=== PATIENT | female | born 1950 | race Caucasian/White ===

== ENCOUNTER 2016-12-11 09:26 | Emergency (ER) | payer OTHER ==
[2016-12-11] VITALS (10 sets, daily range): BP systolic 118–159; BP diastolic 59–90; PULSE 84–107; RESP 16–20; O2SAT 100
[~2016-12-11] VITALS: Ht 165.1 cm; Wt 67.0 kg
[~2016-12-11 09:26] MED LIST: ALPR-138 PO; ANAS1TAB PO; AZAT50 PO; CITA20 PO; DILT180C PO; FURO20 PO; KCL20 PO; MEST60TA PO; ZOLP10TA3 PO
[2016-12-11] MEDS ORDERED: ETOMIDATE 20 MG/10 ML VIAL ONE (09:39)
[2016-12-11] MEDS ORDERED: SUCCINYLCHOLINE CHLORIDE 200 MG/10 ML VIAL ONE (09:39)
[2016-12-11] MEDS ORDERED: ROCURONIUM INJ 100 MG/10 ML VIAL IV ONE (10:00)
[2016-12-11] MEDS ORDERED: SODIUM CHLORID 0.9% 500 ML INJ 500 ML IV ONE (10:00)
[2016-12-11] MEDS ORDERED: ETOMIDATE 20 MG/10 ML VIAL IV PUSH ONE (10:00)
[2016-12-11] MEDS ORDERED: PROPOFOL 1000 MG/100 ML INJ 100 ML IV SCH (10:00)
[2016-12-11] MEDS ORDERED: SODIUM CHLORIDE 0.9% FLUSH 10 ML FLUSH IVF PRN (10:00)
[2016-12-11 10:20] LABS: BLOOD GAS BASE EXCESS 1.1 mmol/L (-2-2); BLOOD GAS CARBOXYHEMOGLOBIN 2.7 % (0-4); BLOOD GAS HCO3 24 mmol/L (22-26); BLOOD GAS METHEMOGLOBIN 0.8 % (0-2); BLOOD GAS O2 HGB SATURATION 97 % (90-100); BLOOD GAS OXYGEN CONTENT 14.3 Vol % (12.0-20.0); BLOOD GAS PCO2 30 mmHg (38-42); BLOOD GAS PO2 414 mmHG (61-120); BLOOD GAS TOTAL HGB 9.7 G/DL (12.0-16.0); TEMP CORR TO 98.6
[2016-12-11 10:21] LABS: CRITICAL VALUE YES; DRAW SITE RT RADIAL; FIO2 100 %; NUMBER OF ARTERIAL PUNCTURES 1; OXYGEN DEVICE VENTILATOR; STAT YES; ULNAR PULSE PRESENT; VENT SETTINGS AC 16/550/PEEP5
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
[2016-12-11 10:59] LABS: AUTOMATED NEUTROPHIL # 7.3 TH/MM3 (1.8-7.7); BASOPHIL # 0.1 TH/MM3 (0-0.2); BASOPHIL % 0.7 % (0.0-2.0); EOSINOPHIL # 0.1 TH/MM3 (0-0.4); EOSINOPHIL % 1.2 % (0.0-4.0); HEMATOCRIT 34.7 % (35.0-46.0); HEMO FLAGS DIFF FINAL; LYMPH % 3.9 % (9.0-44.0); LYMPHOCYTE # 0.3 TH/MM3 (1.0-4.8); MEAN CELL VOLUME 85.4 FL (80.0-100.0); MEAN CORPUSCULAR HGB CONC 31.6 % (32.0-36.0); MONO % 5.4 % (0.0-8.0); NEUT % 88.8 % (16.0-70.0); PLATELET COUNT 185 TH/MM3 (150-450); RED BLOOD COUNT 4.07 MIL/MM3 (4.00-5.30); RED CELL DISTRIBUTION WIDTH 14.5 % (11.6-17.2); WHITE BLOOD COUNT 8.2 TH/MM3 (4.0-11.0)
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
[2016-12-11 11:13] LABS: ANION GAP 9 MEQ/L (5-15); BICARBONATE 28.5 MEQ/L (21.0-32.0); BLOOD UREA NITROGEN 19 MG/DL (7-18); CHLORIDE 104 MEQ/L (98-107); GLOMERULAR FILTRATION RATE 68 ML/MIN (>89); POTASSIUM 3.5 MEQ/L (3.5-5.1); SODIUM (NA) 141 MEQ/L (136-145)
[2016-12-11 11:17] LABS: BACTERIA, URINE RARE /hpf; BLOOD, URINE MOD (NEG); COMMENT (UR) CULT NOT INDICATED; CULTURE IF INDICATED CULT NOT INDICATED; GLUCOSE,URINE NEG (NEG); HYALINE CAST, URINE 5 /lpf (RARE); KETONE, URINE NEG (NEG); MUCUS URINE FEW /lpf (OCC); NITRITE,URINE NEG (NEG); URINE COLOR YELLOW (YELLW/STRAW)
[2016-12-11 11:24] LABS: PROTHROMBIN TIME - PATIENT 11.1 SEC (9.8-11.6)
[2016-12-11 11:30] LABS: AMPHETAMINE, URINE NEG (NEG); BARBITURATES, URINE NEG (NEG); COCAINE, URINE NEG (NEG)
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
[2016-12-11] MEDS: RESP: ALBUTEROL 2.5 MG/3 ML NEB (SCH) INH ×2 (13:11→13:12)
[2016-12-11] MEDS ORDERED: MIDAZOLAM HCL 5 MG/ML VIAL (1 ML) ONE ×3 (13:50→13:55)
--- NOTE | 2016-12-12 15:31 | EKG ---
Date Performed: 12/11/2016 Time Performed: 09:59:02 PTAGE: 65 years EKG: Sinus rhythm WITH FIRST DEGREE AV BLOCK LEFT ATRIAL ENLARGEMENT LOW QRS VOLTAGE IN PRECORDIAL LEADS ABNORMAL ECG Compared to prior tracing no significant change PREVIOUS TRACING : 03/12/2015 06.47 DOCTOR: Laura Garcia Interpretating Date/Time 12/12/2016 15:30:04
== END 2016-12-11 14:38 | disposition short-term general hospital (02) ==
LOC: NEPC 09:26
DX: J96.00 Acute respiratory failure, unspecified whether with hypoxia or hypercapnia (principal); J70.5 Respiratory conditions due to smoke inhalation; R41.82 Altered mental status, unspecified; R40.1 Stupor; I44.0 Atrioventricular block, first degree; I51.7 Cardiomegaly; R94.31 Abnormal electrocardiogram [ECG] [EKG]
CPT/HCPCS: 31500; 36600; 51702; 70450; 71010; 80048; 80307; 81001; 82805; 84484; 85025; 85610; 93005; 94664; 99291; J0330; J7040; J7613; J2250

== ENCOUNTER 2016-12-22 18:21 | Inpatient (IN) | payer OTHER, MEDICARE ==
[~2016-12-22] VITALS: Ht 162.6 cm; Wt 81.2 kg
[2016-12-22 23:50] VITALS: O2SAT 100
[2016-12-23] VITALS (19 sets, daily range): BP systolic 138–173; BP diastolic 58–77; PULSE 78–104; RESP 16–17; TEMP 98.4–100.3; O2SAT 96–100
[2016-12-23 00:54] LABS: BLOOD GAS BASE EXCESS 8.5 mmol/L (-2-2); BLOOD GAS CARBOXYHEMOGLOBIN 1.8 % (0-4); BLOOD GAS HCO3 32 mmol/L (22-26); BLOOD GAS METHEMOGLOBIN 0.7 % (0-2); BLOOD GAS O2 HGB SATURATION 97 % (90-100); BLOOD GAS PCO2 39 mmHg (38-42); BLOOD GAS PO2 202 mmHg (61-120); BLOOD GAS TOTAL HGB 9.9 G/DL (12.0-16.0); CRITICAL VALUE YES; TEMP CORR TO 98.6
[2016-12-23 00:55] LABS: OXYGEN DEVICE VENTILATOR; VENT SETTINGS PRVC/AC
[2016-12-23 00:56] LABS: DRAW SITE ART LINE; FIO2 50 %; STAT NO
[2016-12-23] MEDS ORDERED: ACETAMINOPHEN 325 MG TAB PO PRN (01:15)
[2016-12-23] MEDS ORDERED: SODIUM CHLORIDE 0.9% FLUSH 10 ML FLUSH PRN (01:15)
[2016-12-23] MEDS ORDERED: SENNOSIDES 8.6 MG TAB PO PRN (01:15)
[2016-12-23] MEDS ORDERED: MISCELLANEOUS NURSING INFORMATION XX SCH (01:15)
[2016-12-23] MEDS ORDERED: CHLORHEXIDINE GLUCONATE 2 % 1 PACK (2 CLOTHS) TOP PRN (01:15)
[2016-12-23] MEDS ORDERED: LACTULOSE SYRUP 20 GM/30 ML CUP PO PRN (01:15)
[2016-12-23] MEDS ORDERED: BISACODYL 10 MG SUPP RECTAL PRN (01:15)
[2016-12-23] MEDS ORDERED: RESP: ALBUTEROL 2.5 MG/IPRATROPIUM 0.5 MG NEB (PRN) INH (01:15)
[2016-12-23] MEDS ORDERED: MAGNESIUM HYDROXIDE SUSP 30 ML CUP PO PRN (01:15)
[2016-12-23] MEDS: SODIUM CHLOR 0.9% 1000 ML INJ 1,000 ML IV SCH ×2 (01:49→13:08)
[2016-12-23] MEDS: MORPHINE SULFATE 4 MG/ML INJ IV PRN ×3 (02:27→10:09)
[2016-12-23] MEDS: RESP: ALBUTEROL 2.5 MG/IPRATROPIUM 0.5 MG NEB (SCH) INH ×4 (03:10→20:34)
[2016-12-23] MEDS ORDERED: LABETALOL HCL 100 MG/20 ML VIAL IV PUSH PRN (03:30)
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
[2016-12-23 04:26] LABS: AUTOMATED NEUTROPHIL # 18.9 TH/MM3 (1.8-7.7); BASOPHIL # 0.1 TH/MM3 (0-0.2); BASOPHIL % 0.5 % (0.0-2.0); EOSINOPHIL # 0.3 TH/MM3 (0-0.4); EOSINOPHIL % 1.2 % (0.0-4.0); HEMATOCRIT 28.5 % (35.0-46.0); LYMPH % 2.1 % (9.0-44.0); LYMPHOCYTE # 0.4 TH/MM3 (1.0-4.8); MEAN CELL VOLUME 83.3 FL (80.0-100.0); MEAN CORPUSCULAR HEMOGLOBIN 26.7 PG (27.0-34.0); MONO % 9.3 % (0.0-8.0); NEUT % 86.9 % (16.0-70.0); PLATELET COUNT 248 TH/MM3 (150-450); RED BLOOD COUNT 3.42 MIL/MM3 (4.00-5.30); RED CELL DISTRIBUTION WIDTH 15.4 % (11.6-17.2); WHITE BLOOD COUNT 21.7 TH/MM3 (4.0-11.0)
[2016-12-23 04:27] LABS: ALT (GPT) 18 U/L (10-53); ANION GAP 6 MEQ/L (5-15); AST (GOT) 29 U/L (15-37); BICARBONATE 32.6 MEQ/L (21.0-32.0); BLOOD UREA NITROGEN 26 MG/DL (7-18); CHLORIDE 114 MEQ/L (98-107); GLOMERULAR FILTRATION RATE 124 ML/MIN (>89); MAGNESIUM 2.8 MG/DL (1.5-2.5); POTASSIUM 3.8 MEQ/L (3.5-5.1); SODIUM (NA) 153 MEQ/L (136-145)
[2016-12-23 04:29] LABS: ALKALINE PHOSPHATASE 97 U/L (45-117); HEMO FLAGS AUTO DIFF; TOTAL BILIRUBIN ADULT 0.5 MG/DL (0.2-1.0)
[2016-12-23] MEDS: CHLORHEXIDINE GLUCONATE 2 % 1 PACK (2 CLOTHS) TOP SCH (04:58)
[2016-12-23 05:36] LABS: BANDS 9 % (0-6); CORRECTED NUCLEATED RBC 1 /100 WBC (0-0); EOSINOPHILS 1 % (0-4); MYELOCYTES 3 % (0-0); NEUTROPHIL # MANUAL DIFF 20.6 TH/MM3 (1.8-7.7); POLYS (SEG NEUTROPHILS) 83 % (16-70); WBC DIFF SAMPLE 100
[2016-12-23 05:37] LABS: PLATELET ESTIMATE SMEAR NORMAL (NORMAL); PLATELET MORPHOLOGY NORMAL (NORMAL); SCAN/DIFF FINAL DIFF MANUAL
[2016-12-23] MEDS: HEPARIN SODIUM - SQ 10,000 UNITS/ML VIAL SQ SCH ×3 (05:52→21:14)
--- NOTE | 2016-12-23 06:05 | RADRPT ---
EXAM DATE/TIME: 12/23/2016 05:21 [facility] COMPARISON: CHEST SINGLE AP, December 11, 2016, 10:06. INDICATIONS : Evaluate after respiratory distress. MEDICAL HISTORY : Cardiovascular disease. SURGICAL HISTORY : CABG. ENCOUNTER: Subsequent ACUITY: 1 week PAIN SCORE: Non-responsive. LOCATION: Bilateral chest FINDINGS: Tracheostomy tube is present in satisfactory position. Left subclavian pacer wires are present with t ips in the right atrium and right ventricle. There is evidence for prior median sternotomy. Mild left lung base atelectasis and/or infiltrate is seen. There is also mild diffuse interstitial process in the left lung. No definite pneumothorax is seen for technique. Heart and mediastinum are unremarkable for technique. CONCLUSION: Mild left lung base atelectasis and/or infiltrate is seen and left lung interstitial process. Augustine Espinoza MD on December 23, 2016 at 6:02 Board Certified Radiologist. This report was verified electronically.
[2016-12-23] MEDS ORDERED: ANASTROZOLE 1 MG TAB PO SCH (09:00)
[2016-12-23] MEDS ORDERED: DILTIAZEM-CD 180 MG CAP ER PO SCH (09:00)
[2016-12-23] MEDS: SODIUM CHLORIDE 0.9% FLUSH 10 ML FLUSH SCH ×2 (09:59→21:14)
[2016-12-23] MEDS: ALPRAZolam 0.25 MG TAB PO SCH ×2 (10:00→21:13)
[2016-12-23] MEDS: PANTOPRAZOLE SODIUM 40 MG VIAL IV SCH (10:00)
[2016-12-23] MEDS: CITALOPRAM HYDROBROMIDE 20 MG TAB PO SCH (10:01)
[2016-12-23] MEDS: PYRIDOSTIGMINE BROMIDE 60 MG TAB PO SCH ×2 (10:01→21:11)
[2016-12-23] MEDS: DOCUSATE SODIUM 50 MG/SENNA 8.6 MG TAB PO SCH ×2 (10:01→21:00)
[2016-12-23] MEDS: DILTIAZEM HCL 60 MG TAB PO SCH ×2 (11:30→18:22)
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
[2016-12-23] MEDS: ZOLPIDEM TARTRATE 10 MG TAB PO SCH (21:11)
[2016-12-24] VITALS (19 sets, daily range): BP systolic 112–186; BP diastolic 49–81; PULSE 79–90; RESP 16–26; TEMP 98.7–100.5; O2SAT 95–100
[2016-12-24] MEDS: DILTIAZEM HCL 60 MG TAB PO SCH ×4 (02:56→18:41)
[2016-12-24] MEDS: SODIUM CHLOR 0.9% 1000 ML INJ 1,000 ML IV SCH ×2 (02:56→12:58)
[2016-12-24 04:07] LABS: POTASSIUM 3.3 MEQ/L (3.5-5.1)
[2016-12-24] MEDS: RESP: ALBUTEROL 2.5 MG/IPRATROPIUM 0.5 MG NEB (SCH) INH ×4 (04:29→20:53)
[2016-12-24] MEDS: CHLORHEXIDINE GLUCONATE 2 % 1 PACK (2 CLOTHS) TOP SCH (04:53)
[2016-12-24] MEDS: HEPARIN SODIUM - SQ 10,000 UNITS/ML VIAL SQ SCH ×3 (06:28→21:27)
[2016-12-24] MEDS ORDERED: POTASSIUM PHOSPHATE MONOBASIC 500 MG TAB PO PRN (06:45)
[2016-12-24] MEDS ORDERED: POTASSIUM CHLOR 40 MEQ PREMIX 100 ML IV PRN ×2 (06:45)
[2016-12-24] MEDS ORDERED: SODIUM PHOSPHATE INJ 30 MMOL in SODIUM CHLOR 0.9% 250 ML INJ 240 ML IV PRN (06:45)
[2016-12-24] MEDS ORDERED: MAGNESIUM SULFATE INJ 2 GM in SODIUM CHLORIDE 0.9% INJ 96 ML IV PRN (06:45)
[2016-12-24] MEDS ORDERED: MAGNESIUM OXIDE 400 MG TAB PO PRN (06:45)
[2016-12-24] MEDS ORDERED: POTASSIUM CHLOR 20 MEQ PREMIX 100 ML IV PRN (06:45)
[2016-12-24] MEDS ORDERED: POTASSIUM PHOSPHATE MONOBASIC 500 MG TAB PO/TUBE PRN (06:45)
[2016-12-24] MEDS ORDERED: POTASSIUM PHOSPHATE INJ 30 MMOL in SODIUM CHLOR 0.9% 250 ML INJ 250 ML IV PRN (06:45)
[2016-12-24] MEDS ORDERED: MAGNESIUM SULFATE INJ 4 GM in SODIUM CHLORIDE 0.9% INJ 92 ML IV PRN (06:45)
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
[2016-12-24] MEDS: DOCUSATE SODIUM 50 MG/SENNA 8.6 MG TAB PO SCH ×2 (09:00→21:00)
[2016-12-24] MEDS: POTASSIUM CHLOR 20 MEQ PREMIX 100 ML IV PRN ×2 (09:08→11:17)
[2016-12-24] MEDS: PYRIDOSTIGMINE BROMIDE 60 MG TAB PO SCH ×2 (09:09→21:27)
[2016-12-24] MEDS: ALPRAZolam 0.25 MG TAB PO SCH ×2 (09:09→21:27)
[2016-12-24] MEDS: PANTOPRAZOLE SODIUM 40 MG VIAL IV SCH (09:09)
[2016-12-24] MEDS: SODIUM CHLORIDE 0.9% FLUSH 10 ML FLUSH SCH ×2 (09:10→21:28)
[2016-12-24] MEDS: CITALOPRAM HYDROBROMIDE 20 MG TAB PO SCH (09:15)
--- NOTE | 2016-12-24 14:40 | EKG ---
Date Performed: 12/23/2016 Time Performed: 11:27:46 PTAGE: 65 years EKG: Atrial fibrillation with rapid ventricular response with demand pacer Nonspecific T-wave ch anges Since PREVIOUS TRACING 12/11/2016, there is rhythm change from Sinus rhythm with first degree AV block to atrial fibrillation. One pacer spike was seen in the previous tracing. The patient's atrial lead may not be sensing properly as there are some very short OK intervals and somewhat longer OK intervals seen in this tracing. Clinical correlation is recommended. PREVIOUS TRAC IN12/11/2016 09.59 DOCTOR: Donny Arteaga Interpretating Date/Time 12/24/2016 14:40:28
--- NOTE | 2016-12-24 14:43 | EKG ---
Date Performed: 12/23/2016 Time Performed: 11:29:06 PTAGE: 65 years EKG: Atrial fibrillation with rapid ventricular response and demand pacing The atrial lead may n ot be sensing properly. The ventricular lead does appear to be pacing intermittently. Nonspecific T-w ave change Since PREVIOUS TRACING 12/23/2016, there appears to be ventricular pacing intermittently. Unde rlying rhythm of atrial fibrillation remains. Clinical correlation is recommended. PREVIOUS TRACIN12/23/2016 11.27 DOCTOR: Donny Arteaga Interpretating Date/Time 12/24/2016 14:42:24
[2016-12-24] MEDS: ZOLPIDEM TARTRATE 10 MG TAB PO SCH (21:27)
[2016-12-25] VITALS (19 sets, daily range): BP systolic 126–179; BP diastolic 54–80; PULSE 82–99; RESP 18–23; TEMP 98.4–99.6; O2SAT 37–100
[2016-12-25] MEDS: DILTIAZEM HCL 60 MG TAB PO SCH ×5 (00:31→23:08)
[2016-12-25] MEDS: SODIUM CHLOR 0.9% 1000 ML INJ 1,000 ML IV SCH ×3 (00:31→23:08)
[2016-12-25] MEDS: RESP: ALBUTEROL 2.5 MG/IPRATROPIUM 0.5 MG NEB (SCH) INH ×4 (04:53→20:27)
[2016-12-25] MEDS: CHLORHEXIDINE GLUCONATE 2 % 1 PACK (2 CLOTHS) TOP SCH (05:53)
[2016-12-25] MEDS: HEPARIN SODIUM - SQ 10,000 UNITS/ML VIAL SQ SCH ×3 (06:22→20:45)
[2016-12-25] MEDS: DOCUSATE SODIUM 50 MG/SENNA 8.6 MG TAB PO SCH ×2 (09:00→20:45)
[2016-12-25] MEDS: SODIUM CHLORIDE 0.9% FLUSH 10 ML FLUSH SCH ×2 (09:00→20:45)
[2016-12-25] MEDS ORDERED: MISCELLANEOUS NURSING INFORMATION ONE (10:00)
[2016-12-25] MEDS: PYRIDOSTIGMINE BROMIDE 60 MG TAB PO SCH ×2 (10:04→20:44)
[2016-12-25] MEDS: ALPRAZolam 0.25 MG TAB PO SCH ×2 (10:04→20:44)
[2016-12-25] MEDS: PANTOPRAZOLE SODIUM 40 MG VIAL IV SCH (10:04)
[2016-12-25] MEDS: CITALOPRAM HYDROBROMIDE 20 MG TAB PO SCH (10:04)
[2016-12-25] MEDS: MORPHINE SULFATE 4 MG/ML INJ IV PRN ×2 (11:00→15:48)
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
--- NOTE | 2016-12-25 12:27 | RADRPT ---
EXAM DATE/TIME: 12/25/2016 11:11 [place] COMPARISON: CHEST SINGLE AP, December 23, 2016, 5:21. INDICATIONS : Follow up right pneumothorax/chest tube MEDICAL HISTORY : Cardiovascular disease. Hypertension Carcinoma, breast. thymus cancer SURGICAL HISTORY : Pacemaker. CABG. ENCOUNTER: Initial ACUITY: 2 days PAIN SCORE: Non-responsive. LOCATION: Bilateral chest FINDINGS: The tracheostomy appears in satisfactory position. There is a oral gastric tube present. There is a t ransvenous pacer in good position. The patient is post median sternotomy and valvular replacement. Th ere is a chest tube in place at the right lung base. No pneumothorax is identified. The osseous structures are grossly intact. CONCLUSION: 1. Support equipment in satisfactory position. 2. Chest tube at the right lung base. 3. No pneumothorax. Nigel Aldana MD on December 25, 2016 at 12:24 Board Certified Radiologist. This report was verified electronically.
[2016-12-25 12:34] LABS: AUTOMATED NEUTROPHIL # 15.3 TH/MM3 (1.8-7.7); BASOPHIL # 0.1 TH/MM3 (0-0.2); BASOPHIL % 0.5 % (0.0-2.0); EOSINOPHIL # 0.2 TH/MM3 (0-0.4); HEMATOCRIT 26.2 % (35.0-46.0); LYMPH % 1.4 % (9.0-44.0); LYMPHOCYTE # 0.3 TH/MM3 (1.0-4.8); MEAN CELL VOLUME 83.8 FL (80.0-100.0); MEAN CORPUSCULAR HEMOGLOBIN 26.8 PG (27.0-34.0); MONO % 8.9 % (0.0-8.0); NEUT % 88.2 % (16.0-70.0); PLATELET COUNT 250 TH/MM3 (150-450); RED BLOOD COUNT 3.13 MIL/MM3 (4.00-5.30); RED CELL DISTRIBUTION WIDTH 15.5 % (11.6-17.2); WHITE BLOOD COUNT 17.4 TH/MM3 (4.0-11.0)
[2016-12-25 12:36] LABS: HEMO FLAGS AUTO DIFF
[2016-12-25 12:39] LABS: APTT (PATIENT) 25.7 SEC (24.3-30.1)
[2016-12-25 13:00] LABS: ALKALINE PHOSPHATASE 106 U/L (45-117); ALT (GPT) 55 U/L (10-53); ANION GAP 8 MEQ/L (5-15); AST (GOT) 65 U/L (15-37); BICARBONATE 21.5 MEQ/L (21.0-32.0); BLOOD UREA NITROGEN 22 MG/DL (7-18); CHLORIDE 117 MEQ/L (98-107); CREATINE KINASE 527 U/L (26-192); GLOMERULAR FILTRATION RATE 175 ML/MIN (>89); MAGNESIUM 2.4 MG/DL (1.5-2.5); POTASSIUM 3.7 MEQ/L (3.5-5.1); SODIUM (NA) 146 MEQ/L (136-145); TOTAL BILIRUBIN ADULT 0.3 MG/DL (0.2-1.0)
[2016-12-25 13:20] LABS: BANDS 10 % (0-6); METAMYELOCYTES 1 % (0-1); NEUTROPHIL # MANUAL DIFF 15.5 TH/MM3 (1.8-7.7); PLATELET ESTIMATE SMEAR NORMAL (NORMAL); PLATELET MORPHOLOGY NORMAL (NORMAL); POLYS (SEG NEUTROPHILS) 78 % (16-70); SCAN/DIFF FINAL DIFF MANUAL; WBC DIFF SAMPLE 100
[2016-12-25] MEDS ORDERED: POTASSIUM PHOSPHATE/SODIUM PHOSPHATE 250 MG TAB OG-TUBE ONE (14:00)
[2016-12-25 14:08] LABS: CKMB 7.9 NG/ML (0.5-3.6)
[2016-12-25] MEDS: ZOLPIDEM TARTRATE 10 MG TAB PO SCH (20:43)
[2016-12-26] VITALS (16 sets, daily range): BP systolic 122–144; BP diastolic 53–83; PULSE 85–102; RESP 17–33; TEMP 98.4–99.7; O2SAT 97–100
[2016-12-26] MEDS: RESP: ALBUTEROL 2.5 MG/IPRATROPIUM 0.5 MG NEB (SCH) INH ×4 (03:15→19:52)
[2016-12-26] MEDS: CHLORHEXIDINE GLUCONATE 2 % 1 PACK (2 CLOTHS) TOP SCH (04:00)
[2016-12-26] MEDS: DILTIAZEM HCL 60 MG TAB PO SCH ×4 (04:26→23:54)
[2016-12-26] MEDS: MORPHINE SULFATE 4 MG/ML INJ IV PRN ×2 (04:26→17:58)
[2016-12-26] MEDS: HEPARIN SODIUM - SQ 10,000 UNITS/ML VIAL SQ SCH ×3 (04:26→22:32)
[2016-12-26 04:51] LABS: HEMATOCRIT 26.6 % (35.0-46.0); MEAN CELL VOLUME 84.6 FL (80.0-100.0); MEAN CORPUSCULAR HEMOGLOBIN 26.6 PG (27.0-34.0); MEAN CORPUSCULAR HGB CONC 31.5 % (32.0-36.0); PLATELET COUNT 239 TH/MM3 (150-450); RED BLOOD COUNT 3.14 MIL/MM3 (4.00-5.30); RED CELL DISTRIBUTION WIDTH 15.6 % (11.6-17.2); REVIEW FLAG FINAL; WHITE BLOOD COUNT 17.9 TH/MM3 (4.0-11.0)
[2016-12-26 05:37] LABS: BICARBONATE 21.9 MEQ/L (21.0-32.0); POTASSIUM 3.9 MEQ/L (3.5-5.1)
[2016-12-26] MEDS: SODIUM CHLORIDE 0.9% FLUSH 10 ML FLUSH SCH ×2 (09:00→20:06)
[2016-12-26] MEDS: ALPRAZolam 0.25 MG TAB PO SCH ×2 (09:50→20:05)
[2016-12-26] MEDS: LACTULOSE SYRUP 20 GM/30 ML CUP PO SCH (09:50)
[2016-12-26] MEDS: PANTOPRAZOLE SODIUM 40 MG VIAL IV SCH (09:50)
[2016-12-26] MEDS: PYRIDOSTIGMINE BROMIDE 60 MG TAB PO SCH ×2 (09:51→20:05)
[2016-12-26] MEDS: CITALOPRAM HYDROBROMIDE 20 MG TAB PO SCH (09:51)
[2016-12-26] MEDS: DOCUSATE SODIUM 50 MG/SENNA 8.6 MG TAB PO SCH ×2 (09:51→20:05)
[2016-12-26] MEDS ORDERED: POTASSIUM PHOSPHATE/SODIUM PHOSPHATE 250 MG TAB PO ONE (12:00)
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
[2016-12-26] MEDS: FREE WATER G-TUBE SCH ×2 (17:04→23:54)
[2016-12-26] MEDS: RESP: SODIUM CHLORIDE 3% 4 ML NEB NEB SCH (19:52)
[2016-12-26] MEDS: ZOLPIDEM TARTRATE 10 MG TAB PO SCH (20:05)
[2016-12-27] VITALS (18 sets, daily range): BP systolic 126–155; BP diastolic 52–75; PULSE 79–92; RESP 16–26; TEMP 98.4–99.9; O2SAT 97–100
[2016-12-27] MEDS: RESP: ALBUTEROL 2.5 MG/IPRATROPIUM 0.5 MG NEB (SCH) INH ×4 (03:02→19:51)
[2016-12-27] MEDS: RESP: SODIUM CHLORIDE 3% 4 ML NEB NEB SCH ×4 (03:02→19:51)
[2016-12-27] MEDS: CHLORHEXIDINE GLUCONATE 2 % 1 PACK (2 CLOTHS) TOP SCH (04:34)
[2016-12-27 04:40] LABS: HEMATOCRIT 24.8 % (35.0-46.0); MEAN CELL VOLUME 85.1 FL (80.0-100.0); MEAN CORPUSCULAR HEMOGLOBIN 26.8 PG (27.0-34.0); MEAN CORPUSCULAR HGB CONC 31.5 % (32.0-36.0); PLATELET COUNT 201 TH/MM3 (150-450); RED BLOOD COUNT 2.91 MIL/MM3 (4.00-5.30); RED CELL DISTRIBUTION WIDTH 15.5 % (11.6-17.2); REVIEW FLAG FINAL; WHITE BLOOD COUNT 16.5 TH/MM3 (4.0-11.0)
[2016-12-27 05:03] LABS: BICARBONATE 23.7 MEQ/L (21.0-32.0); MAGNESIUM 2.3 MG/DL (1.5-2.5); POTASSIUM 3.7 MEQ/L (3.5-5.1)
--- NOTE | 2016-12-27 05:56 | RADRPT ---
EXAM DATE/TIME: 12/27/2016 04:32 [facility] COMPARISON: CHEST SINGLE AP, December 25, 2016, 11:11. INDICATIONS : Shortness of breath. MEDICAL HISTORY : Hypertension. Cardiovascular disease. Carcinoma, breast. SURGICAL HISTORY : CABG. Pacemaker. ENCOUNTER: Subsequent ACUITY: 4 - 6 days PAIN SCORE: Non-responsive. LOCATION: Bilateral chest FINDINGS: A single view of the chest demonstrates the tracheostomy tube and feeding tube are both in good posit ion. Left subclavian multilead pacer in good position. There is a small interface in the right latera l chest could be a small amount residual pleural air. Right chest tube overlies right hemidiaphragm. The cardiomediastinal contours are unremarkable. Osseous structures are intact. CONCLUSION: Questionable tiny amount of residual pleural air right lateral chest. The right chest tube, tracheost evan tube and feeding tube are in stable position Julián Ham MD on December 27, 2016 at 5:53 Board Certified Radiologist. This report was verified electronically.
[2016-12-27] MEDS: HEPARIN SODIUM - SQ 10,000 UNITS/ML VIAL SQ SCH ×3 (06:00→22:00)
[2016-12-27] MEDS: FREE WATER G-TUBE SCH ×3 (06:49→17:47)
[2016-12-27] MEDS: DILTIAZEM HCL 60 MG TAB PO SCH ×3 (06:51→17:47)
[2016-12-27] MEDS: PYRIDOSTIGMINE BROMIDE 60 MG TAB PO SCH ×2 (07:58→21:48)
[2016-12-27] MEDS: SODIUM CHLORIDE 0.9% FLUSH 10 ML FLUSH SCH ×2 (07:58→21:44)
[2016-12-27] MEDS: CITALOPRAM HYDROBROMIDE 20 MG TAB PO SCH (07:58)
[2016-12-27] MEDS: PANTOPRAZOLE SODIUM 40 MG VIAL IV SCH (07:58)
[2016-12-27] MEDS: LACTULOSE SYRUP 20 GM/30 ML CUP PO SCH (07:58)
[2016-12-27] MEDS: DOCUSATE SODIUM 50 MG/SENNA 8.6 MG TAB PO SCH ×2 (07:58→21:00)
[2016-12-27] MEDS: ALPRAZolam 0.25 MG TAB PO SCH ×2 (07:58→21:41)
[2016-12-27] MEDS ORDERED: POTASSIUM PHOSPHATE INJ 15 MMOL in SODIUM CHLORIDE 0.9% INJ 150 ML IV ONE (10:15)
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
[2016-12-27] MEDS: LEVOFLOXACIN 750 MG PREMIX INJ 150 ML IV SCH (11:13)
[2016-12-27] MEDS ORDERED: PROPOFOL 200 MG/20 ML AMP IV ONE (14:15)
[2016-12-27] MEDS ORDERED: ATROPINE SULFATE 1 MG/10 ML SYRINGE ONE (14:54)
--- NOTE | 2016-12-27 15:13 | GIPROC ---
[facility] [address] [facility]. [facility], [id number] EGD WITH PEG PROCEDURE REPORT EXAM DATE: 12/27/2016 PATIENT NAME: Amy Parmar MR#: [id number] BIRTHDATE: 1950 ATTENDING: Jorge L Ayala MD ORDER #: [id number] PENSION EXAMINER: Ken Jackson and Fazal Villalba STATUS: inpatient INDICATIONS: The patient is a 66 yr old female here for an EGD with PEG due to placement of PEG PROCEDURE PERFORMED: EGD with PEG placement MEDICATIONS: None and Per Anesthesia. TOPICAL ANESTHETIC: none CONSENT: The patient understands the risks and benefits of the procedure and understands that these risks include, but are not limited to: sedation, allergic reaction, infection, perforation and/or bleeding. Alternative means of evaluation and treatment include, among others: physical exam, x-rays, and/or surgical intervention. The patient elects to proceed with this endoscopic procedure. medical equipment was checked for proper function. Hand hygiene and appropriate measures for infection prevention was taken. After the risks, benefits and alternatives of the procedure were thoroughly explained, Informed consent was verified, confirmed and timeout was successfully executed by the treatment team. The patient was anesthetized with topical anesthesia and the Pentax [id number] endoscope was introduced through the mouth and advanced to the second portion of the duodenum. The instrument was slowly withdrawn as the mucosa was fully examined. The upper, middle, and distal third of the esophagus were carefully inspected and no abnormalities were noted. The z-line was well seen at the GEJ. The endoscope was pushed into the fundus which was normal including a retroflexed view. The antrum, first and second part of the duodenum were unremarkable. The stomach was then inflated with air, and by a combination of transillumination and manual palpation, the site for the gastrostomy tube placement was selected and marked on the anterior abdominal wall. The skin of the anterior abdomen was surgically prepped and draped with sterile towels. Utilizing strict sterile technique, the selected site was then anesthetized with 1% xylocaine by injection into the skin and subcutaneous tissue. A 1 cm incision was made through the skin and subcutaneous tissue, and the needle/cannula assembly was then passed through the abdominal wall and through the anterior wall of the stomach, maintaining visualization with the endoscope. A snare device previously placed through the instrument channel was then opened and placed around the cannula, the needle was removed, and the insertion wire was passed through the cannula and into the stomach lumen. The snare was then loosened from the cannula, and repositioned to snare the insertion wire. The snare was then pulled up to the endoscope distal tip, and the scope was then withdrawn bringing with it the snare and insertion wire. The insertion wire was then released from the snare, and then loop-attached to the Bard 20 Fr gastrostomy tube. Using the "pull technique", the G-tube was then pulled into place by traction on the insertion wire at the abdominal wall end. The G-tube insertion site was then cleansed once again, and the external bolster was placed over the tube to secure it to the abdominal wall. A sterile dressing was then applied, and the procedure terminated. no abnormalities The gastroscope was then slowly withdrawn and removed. ADVERSE EVENT: There were no complications. IMPRESSIONS: 1. The upper, middle, and distal third of the esophagus were carefully inspected and no abnormalities were noted. The z-line was well seen at the GEJ. The endoscope was pushed into the fundus which was normal including a retroflexed view. The antrum, first and second part of the duodenum were unremarkable. 2. PEG tube placed successfully RECOMMENDATIONS: PEG recomendations: 1- NPO for 6 hours except for meds 2- Flush PEG tube every 6 hours with water and after each PEG feeding 3- May resume regular diet in the morning 4- May use Ensure or Boost etc. for PEG tube feeding REPEAT EXAM: procedure as needed Jorge L Ayala MD eSigned: JorgeL Ayala MD 12/27/2016 3:12 PM cc: PATIENT NAME: Amy Parmar MR#: [id number]
[2016-12-27] MEDS: MORPHINE SULFATE 4 MG/ML INJ IV PRN ×2 (15:27→20:29)
[2016-12-27] MEDS: ZOLPIDEM TARTRATE 10 MG TAB PO SCH (21:42)
[2016-12-28] VITALS (19 sets, daily range): BP systolic 112–136; BP diastolic 52–68; PULSE 76–89; RESP 16–29; TEMP 98.2–99.1; O2SAT 95–100
[2016-12-28] MEDS: DILTIAZEM HCL 60 MG TAB PO SCH ×5 (00:33→23:30)
[2016-12-28] MEDS: FREE WATER G-TUBE SCH ×5 (00:34→23:30)
[2016-12-28] MEDS: RESP: ALBUTEROL 2.5 MG/IPRATROPIUM 0.5 MG NEB (SCH) INH ×4 (03:00→21:39)
[2016-12-28] MEDS: RESP: SODIUM CHLORIDE 3% 4 ML NEB NEB SCH ×4 (03:00→21:40)
[2016-12-28] MEDS: CHLORHEXIDINE GLUCONATE 2 % 1 PACK (2 CLOTHS) TOP SCH (04:00)
[2016-12-28 04:10] LABS: HEMATOCRIT 22.9 % (35.0-46.0); MEAN CELL VOLUME 84.4 FL (80.0-100.0); MEAN CORPUSCULAR HEMOGLOBIN 26.8 PG (27.0-34.0); MEAN CORPUSCULAR HGB CONC 31.8 % (32.0-36.0); PLATELET COUNT 199 TH/MM3 (150-450); RED BLOOD COUNT 2.72 MIL/MM3 (4.00-5.30); RED CELL DISTRIBUTION WIDTH 14.8 % (11.6-17.2); REVIEW FLAG FINAL; WHITE BLOOD COUNT 13.3 TH/MM3 (4.0-11.0)
[2016-12-28 04:45] LABS: MAGNESIUM 2.1 MG/DL (1.5-2.5); POTASSIUM 3.6 MEQ/L (3.5-5.1)
[2016-12-28] MEDS: HEPARIN SODIUM - SQ 10,000 UNITS/ML VIAL SQ SCH ×3 (06:00→21:38)
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
[2016-12-28] MEDS ORDERED: POTASSIUM CHLORIDE 20 MEQ PWD PACKET PEG ONE (07:00)
[2016-12-28] MEDS: LACTULOSE SYRUP 20 GM/30 ML CUP PO SCH (09:00)
[2016-12-28] MEDS: DOCUSATE SODIUM 50 MG/SENNA 8.6 MG TAB PO SCH ×2 (09:00→20:04)
[2016-12-28] MEDS: MORPHINE SULFATE 4 MG/ML INJ IV PRN ×2 (09:07→18:53)
[2016-12-28] MEDS: PANTOPRAZOLE SODIUM 40 MG VIAL IV SCH (09:07)
[2016-12-28] MEDS: ALPRAZolam 0.25 MG TAB PO SCH ×2 (09:08→20:10)
[2016-12-28] MEDS: CITALOPRAM HYDROBROMIDE 20 MG TAB PO SCH (09:08)
[2016-12-28] MEDS: PYRIDOSTIGMINE BROMIDE 60 MG TAB PO SCH ×2 (09:08→20:10)
[2016-12-28] MEDS: SODIUM CHLORIDE 0.9% FLUSH 10 ML FLUSH SCH ×2 (09:08→20:10)
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
[2016-12-28] MEDS: LEVOFLOXACIN 750 MG PREMIX INJ 150 ML IV SCH (12:36)
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
--- NOTE | 2016-12-28 16:50 | EKG ---
Date Performed: 12/27/2016 Time Performed: 14:59:50 PTAGE: 66 years EKG: Sinus rhythm When compared to PREVIOUS TRACING , there is no significant T wave Changes, and heart rate is now slower a nd appears to be sinus, And does not appear to be the inappropriate pacer spikes seen Previously. Nor mal ECG PREVIOUSTRACIN12/23/2016 11.27 DOCTOR: Adryan Osborne Interpretating Date/Time 12/28/2016 16:48:20
[2016-12-28] MEDS ORDERED: FUROSEMIDE 20 MG/2 ML VIAL IV PUSH SCH (18:00)
[2016-12-28] MEDS: ZOLPIDEM TARTRATE 10 MG TAB PO SCH (20:10)
[2016-12-28] MEDS ORDERED: POTASSIUM CHLORIDE 20 MEQ PWD PACKET NG SCH (21:00)
[2016-12-29] VITALS (19 sets, daily range): BP systolic 110–138; BP diastolic 50–65; PULSE 74–84; RESP 19–29; TEMP 98.2–99.5; O2SAT 95–100
[2016-12-29] MEDS: CHLORHEXIDINE GLUCONATE 2 % 1 PACK (2 CLOTHS) TOP SCH (03:21)
[2016-12-29] MEDS: RESP: SODIUM CHLORIDE 3% 4 ML NEB NEB SCH ×4 (03:48→20:36)
[2016-12-29] MEDS: RESP: ALBUTEROL 2.5 MG/IPRATROPIUM 0.5 MG NEB (SCH) INH ×4 (03:48→20:36)
[2016-12-29 04:19] LABS: HEMATOCRIT 23.4 % (35.0-46.0); MEAN CELL VOLUME 83.4 FL (80.0-100.0); MEAN CORPUSCULAR HEMOGLOBIN 26.5 PG (27.0-34.0); MEAN CORPUSCULAR HGB CONC 31.7 % (32.0-36.0); PLATELET COUNT 249 TH/MM3 (150-450); RED CELL DISTRIBUTION WIDTH 14.6 % (11.6-17.2); REVIEW FLAG FINAL; WHITE BLOOD COUNT 11.4 TH/MM3 (4.0-11.0)
[2016-12-29 04:33] LABS: BICARBONATE 22.5 MEQ/L (21.0-32.0); POTASSIUM 3.5 MEQ/L (3.5-5.1)
[2016-12-29] MEDS: POTASSIUM CHLORIDE 25 MEQ EFFERVESCENT TAB PO PRN (05:09)
[2016-12-29] MEDS: FREE WATER G-TUBE SCH ×4 (05:10→23:11)
[2016-12-29] MEDS: DILTIAZEM HCL 60 MG TAB PO SCH ×4 (05:10→23:11)
[2016-12-29] MEDS: HEPARIN SODIUM - SQ 10,000 UNITS/ML VIAL SQ SCH ×3 (05:10→22:37)
[2016-12-29] MEDS: MORPHINE SULFATE 4 MG/ML INJ IV PRN (06:03)
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
[2016-12-29] MEDS: POTASSIUM CHLORIDE 20 MEQ PWD PACKET NG SCH (09:00)
[2016-12-29] MEDS: LACTULOSE SYRUP 20 GM/30 ML CUP PO SCH (09:00)
[2016-12-29] MEDS ORDERED: FUROSEMIDE 20 MG/2 ML VIAL IV PUSH SCH (09:00)
[2016-12-29] MEDS: DOCUSATE SODIUM 50 MG/SENNA 8.6 MG TAB PO SCH ×2 (09:00→20:01)
[2016-12-29] MEDS: ALPRAZolam 0.25 MG TAB PO SCH ×2 (09:35→20:01)
[2016-12-29] MEDS: CITALOPRAM HYDROBROMIDE 20 MG TAB PO SCH (09:35)
[2016-12-29] MEDS: FAMOTIDINE 40 MG/5 ML LIQ 50 ML BTL NG SCH (09:35)
[2016-12-29] MEDS: SODIUM CHLORIDE 0.9% FLUSH 10 ML FLUSH SCH ×2 (09:36→20:02)
[2016-12-29] MEDS: PYRIDOSTIGMINE BROMIDE 60 MG TAB PO SCH ×2 (09:36→20:01)
[2016-12-29] MEDS: LEVOFLOXACIN 750 MG PREMIX INJ 150 ML IV SCH (10:59)
[2016-12-29] MEDS: ZOLPIDEM TARTRATE 10 MG TAB PO SCH (20:01)
[2016-12-30] VITALS (14 sets, daily range): BP systolic 112–131; BP diastolic 50–64; PULSE 74–94; RESP 14–18; TEMP 98.8–99.3; O2SAT 98–100
[2016-12-30] MEDS: CHLORHEXIDINE GLUCONATE 2 % 1 PACK (2 CLOTHS) TOP SCH (04:00)
--- NOTE | 2016-12-30 04:52 | RADRPT ---
EXAM DATE/TIME: 12/30/2016 02:59 [facility] COMPARISON: CHEST SINGLE AP, December 28, 2016, 4:56. INDICATIONS : Shortness of breath, tracheostomy tube. Followup patchy opacity.. MEDICAL HISTORY : Hypertension. Cardiovascular disease. Carcinoma, breast. SURGICAL HISTORY : CABG. Pacemaker. ENCOUNTER: Subsequent ACUITY: 1 week PAIN SCORE: Non-responsive. LOCATION: Bilateral chest FINDINGS: A single AP semierect view of the chest was obtained and again demonstrates the tracheostomy tube in place. There is a left subclavian AV sequential transvenous pacer again noted. The heart size remains mildly prominent. The patient is status post median sternotomy. I'll hazy opacity remains in the per ihilar regions and left lung base. There is mild blunting of the costophrenic angles bilaterally. CONCLUSION: 1. Mild cardiomegaly with hazy opacity remaining in both lungs. 2. Apparent small effusions. Riaz Montanez MD on December 30, 2016 at 4:50 Board Certified Radiologist. This report was verified electronically.
[2016-12-30] MEDS: RESP: ALBUTEROL 2.5 MG/IPRATROPIUM 0.5 MG NEB (SCH) INH ×3 (04:53→15:58)
[2016-12-30] MEDS: RESP: SODIUM CHLORIDE 3% 4 ML NEB NEB SCH ×3 (04:53→15:58)
[2016-12-30] MEDS: POTASSIUM CHLORIDE 25 MEQ EFFERVESCENT TAB PO PRN (05:14)
[2016-12-30] MEDS: HEPARIN SODIUM - SQ 10,000 UNITS/ML VIAL SQ SCH ×2 (05:15→13:36)
[2016-12-30] MEDS: FREE WATER G-TUBE SCH ×3 (05:15→17:51)
[2016-12-30] MEDS: DILTIAZEM HCL 60 MG TAB PO SCH ×3 (05:15→17:51)
[2016-12-30] MEDS ORDERED: POTASSIUM CHLORIDE 20 MEQ PWD PACKET PO ONE (07:45)
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
[2016-12-30] MEDS ORDERED: POTASSIUM CHLORIDE 25 MEQ EFFERVESCENT TAB PO ONE (08:00)
[2016-12-30] MEDS: LACTULOSE SYRUP 20 GM/30 ML CUP PO SCH (08:15)
[2016-12-30] MEDS: CITALOPRAM HYDROBROMIDE 20 MG TAB PO SCH (08:16)
[2016-12-30] MEDS: DOCUSATE SODIUM 50 MG/SENNA 8.6 MG TAB PO SCH ×2 (08:16→19:44)
[2016-12-30] MEDS: PYRIDOSTIGMINE BROMIDE 60 MG TAB PO SCH ×2 (08:16→19:43)
[2016-12-30] MEDS: ALPRAZolam 0.25 MG TAB PO SCH ×2 (08:16→19:44)
[2016-12-30] MEDS: SODIUM CHLORIDE 0.9% FLUSH 10 ML FLUSH SCH ×2 (08:17→19:45)
[2016-12-30] MEDS: POTASSIUM CHLORIDE 20 MEQ PWD PACKET NG SCH (08:19)
[2016-12-30] MEDS: FAMOTIDINE 40 MG/5 ML LIQ 50 ML BTL NG SCH (08:40)
[2016-12-30] MEDS ORDERED: FUROSEMIDE 40 MG/5 ML UNIT DOSE CUP NG SCH (09:00)
[2016-12-30] MEDS ORDERED: oxyCODONE HCL ORAL CONC 20 MG/ML SYRINGE PO PRN (10:00)
[2016-12-30] MEDS: LEVOFLOXACIN 750 MG PREMIX INJ 150 ML IV SCH (10:17)
[2016-12-30] MEDS ORDERED: ONDANSETRON HCL 4 MG/2 ML VIAL IV PUSH PRN (10:30)
--- NOTE | 2016-12-30 11:49 | RADRPT ---
EXAM DATE/TIME: 12/30/2016 10:51 [facility] COMPARISON: CHEST SINGLE AP, December 30, 2016, 2:59. INDICATIONS : Post right chest tube removal. MEDICAL HISTORY : Hypertension. Cardiovascular disease. Carcinoma, breast. SURGICAL HISTORY : CABG. Pacemaker ENCOUNTER: Subsequent ACUITY: 1 week PAIN SCORE: Non-responsive. LOCATION: Bilateral chest FINDINGS: Tracheostomy tube and pacer are in good position. There is minimal blunting of the right costophreni c sulcus that has increase in the interval. Minimal parenchymal changes are present in the left base . CONCLUSION: 1. No pneumothorax following removal of right chest tube. 2. Minimal blunting of the right costophrenic sulcus, new in the interval. 3. Minimal stable parenchymal changes left base. John Aldana MD FACR on December 30, 2016 at 11:45 Board Certified Radiologist. This report was verified electronically.
[2016-12-30] MEDS ORDERED: OXYC1CON3 PO (14:06)
[2016-12-30] MEDS ORDERED: IPRASOL INH (14:06)
[2016-12-30] MEDS ORDERED: SENN1TAB PO (14:06)
[2016-12-30] MEDS ORDERED: LEVA750T9 G-TUBE (14:06)
[2016-12-30] MEDS ORDERED: DILT60TA33 PO (14:06)
[2016-12-30] MEDS ORDERED: Free Water G-TUBE (14:06)
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
[2016-12-30] MEDS: ZOLPIDEM TARTRATE 10 MG TAB PO SCH (19:44)
== END 2016-12-30 20:13 | DRG 207 ==
LOC: N03B 23:38
PROVIDERS: ADMIT Surgery Surgical Critical Care; ATTEND Surgery Surgical Critical Care
PROC: 5A1955Z Respiratory Ventilation, Greater than 96 Consecutive Hours (ICD-10-PCS; principal; 2016-12-22)
PROC: 3E0G76Z Introduction of Nutritional Substance into Upper GI, Via Natural or Artificial Opening (ICD-10-PCS; 2016-12-27)
PROC: 0DH63UZ Insertion of Feeding Device into Stomach, Percutaneous Approach (ICD-10-PCS; 2016-12-27 13:45)
DX: J96.10 Chronic respiratory failure, unspecified whether with hypoxia or hypercapnia (principal); J15.6 Pneumonia due to other Gram-negative bacteria; E87.0 Hyperosmolality and hypernatremia; F05 Delirium due to known physiological condition; R13.10 Dysphagia, unspecified; I48.91 Unspecified atrial fibrillation; G70.00 Myasthenia gravis without (acute) exacerbation; E83.39 Other disorders of phosphorus metabolism; Z99.11 Dependence on respirator [ventilator] status; J44.0 Chronic obstructive pulmonary disease with (acute) lower respiratory infection; T59.811A Toxic effect of smoke, accidental (unintentional), initial encounter; Z93.0 Tracheostomy status; F32.9 Major depressive disorder, single episode, unspecified; I10 Essential (primary) hypertension; F41.9 Anxiety disorder, unspecified; F43.25 Adjustment disorder with mixed disturbance of emotions and conduct; K59.00 Constipation, unspecified; D64.9 Anemia, unspecified; I25.10 Atherosclerotic heart disease of native coronary artery without angina pectoris; B96.20 Unspecified Escherichia coli [E. coli] as the cause of diseases classified elsewhere; E87.6 Hypokalemia; J70.5 Respiratory conditions due to smoke inhalation; Z95.2 Presence of prosthetic heart valve
CPT/HCPCS: 71010; 76937; 80048; 80053; 82140; 82550; 82552; 82805; 83690; 83735; 84100; 84132; 85007; 85027; 85730; 87070; 87077; 87186; 87205; 87641; 93005; 94002; 94003; 94640; 94664; C9113; J0461; J1120; J1644; J1940; J1956; J2270; J2405; J3480; J7030

== ENCOUNTER 2017-01-28 10:36 | Emergency (ER) | payer MEDICARE, OTHER ==
[~2017-01-28 10:36] MED LIST changes: -DILT180C PO; +DILT60TA33 PO; +Free Water G-TUBE; +IPRASOL INH; +LEVA750T9 G-TUBE; +OXYC1CON3 PO; +SENN1TAB PO
[2017-01-28 10:39] VITALS: BP 168/72; PULSE 109; RESP 16; TEMP 97.7; O2SAT 98
[2017-01-28] MEDS ORDERED: DOXY100C PO (11:21)
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
== END 2017-01-28 11:38 | disposition home or self-care (01) ==
LOC: NEPD 10:36
DX: L08.9 Local infection of the skin and subcutaneous tissue, unspecified (principal); J45.909 Unspecified asthma, uncomplicated; I48.91 Unspecified atrial fibrillation; J44.9 Chronic obstructive pulmonary disease, unspecified; I10 Essential (primary) hypertension; G70.00 Myasthenia gravis without (acute) exacerbation; F41.9 Anxiety disorder, unspecified; F32.9 Major depressive disorder, single episode, unspecified; Z79.899 Other long term (current) drug therapy
CPT/HCPCS: 99283

== ENCOUNTER 2017-05-06 09:25 | Emergency (ER) | payer OTHER ==
[~2017-05-06 09:25] MED LIST changes: +DOXY100C PO
[2017-05-06 09:34] VITALS: BP 133/86; PULSE 115; RESP 24; TEMP 98.7; O2SAT 95
[2017-05-06 10:32] LABS: AUTOMATED NEUTROPHIL # 5.2 TH/MM3 (1.8-7.7); BASOPHIL % 0.2 % (0.0-2.0); EOSINOPHIL % 0.2 % (0.0-4.0); HEMATOCRIT 30.2 % (35.0-46.0); HEMO FLAGS DIFF FINAL; LYMPH % 2.1 % (9.0-44.0); LYMPHOCYTE # 0.1 TH/MM3 (1.0-4.8); MEAN CELL VOLUME 85.1 FL (80.0-100.0); MEAN CORPUSCULAR HEMOGLOBIN 27.7 PG (27.0-34.0); MEAN CORPUSCULAR HGB CONC 32.6 % (32.0-36.0); MONO % 10.6 % (0.0-8.0); NEUT % 86.9 % (16.0-70.0); PLATELET COUNT 108 TH/MM3 (150-450); RED BLOOD COUNT 3.55 MIL/MM3 (4.00-5.30); RED CELL DISTRIBUTION WIDTH 14.6 % (11.6-17.2)
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
[2017-05-06 10:43] VITALS: BP 110/56; PULSE 94; RESP 16; O2SAT 100
[2017-05-06 10:46] LABS: BACTERIA, URINE FEW /hpf; BLOOD, URINE MOD (NEG); COMMENT (UR) CULTURE INDICATED; CULTURE IF INDICATED CULTURE INDICATED; GLUCOSE,URINE NEG (NEG); HYALINE CAST, URINE 1 /lpf (RARE); KETONE, URINE NEG (NEG); MUCUS URINE FEW /lpf (OCC); NITRITE,URINE NEG (NEG); PH, URINE 5.5 (5.0-8.5); URINE COLOR YELLOW (YELLW/STRAW)
[2017-05-06 10:58] LABS: ALT (GPT) 55 U/L (10-53); ANION GAP 10 MEQ/L (5-15); AST (GOT) 71 U/L (15-37); BICARBONATE 21.6 MEQ/L (21.0-32.0); BLOOD UREA NITROGEN 51 MG/DL (7-18); CHLORIDE 97 MEQ/L (98-107); GLOMERULAR FILTRATION RATE 37 ML/MIN (>89); SODIUM (NA) 129 MEQ/L (136-145)
[2017-05-06 10:59] LABS: ALKALINE PHOSPHATASE 95 U/L (45-117); TOTAL BILIRUBIN ADULT 0.5 MG/DL (0.2-1.0)
[2017-05-06] MEDS ORDERED: MACR100C2 PO (11:16)
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
[2017-05-06 11:28] VITALS: BP 132/65
== END 2017-05-06 11:30 | disposition home or self-care (01) ==
LOC: NEPC 09:25
DX: N30.00 Acute cystitis without hematuria (principal); B95.2 Enterococcus as the cause of diseases classified elsewhere; B96.20 Unspecified Escherichia coli [E. coli] as the cause of diseases classified elsewhere; I10 Essential (primary) hypertension; J44.9 Chronic obstructive pulmonary disease, unspecified; I48.91 Unspecified atrial fibrillation; G70.00 Myasthenia gravis without (acute) exacerbation; Z88.0 Allergy status to penicillin; Z88.5 Allergy status to narcotic agent; Z79.899 Other long term (current) drug therapy; Z95.2 Presence of prosthetic heart valve
CPT/HCPCS: 71010; 80053; 81001; 83605; 85025; 87040; 87077; 87086; 87186; 87205; 99284

== ENCOUNTER 2017-05-08 16:40 | Inpatient (IN) | payer OTHER, MEDICARE ==
[~2017-05-08] VITALS: Ht 152.4 cm; Wt 63.1 kg
[~2017-05-08 16:40] MED LIST changes: +MACR100C2 PO
[2017-05-08] MEDS ORDERED: SENNOSIDES 8.6 MG TAB PO PRN (17:00)
[2017-05-08] MEDS ORDERED: ACETAMINOPHEN 325 MG TAB PO PRN (17:00)
[2017-05-08] MEDS ORDERED: SODIUM CHLORIDE 0.9% FLUSH 10 ML FLUSH IV FLUSH PRN (17:00)
[2017-05-08] MEDS ORDERED: BISACODYL 10 MG SUPP RECTAL PRN (17:00)
[2017-05-08] MEDS ORDERED: MAGNESIUM HYDROXIDE SUSP 30 ML CUP PO PRN (17:00)
[2017-05-08] MEDS ORDERED: ONDANSETRON HCL 4 MG/2 ML VIAL IVP PRN (17:00)
[2017-05-08] MEDS ORDERED: NALOXONE HCL 0.4 MG/ML AMP IV PUSH PRN (17:00)
[2017-05-08] MEDS ORDERED: LACTULOSE SYRUP 20 GM/30 ML CUP PO PRN (17:00)
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
[2017-05-08 17:47] VITALS: BP 106/51; PULSE 81; RESP 18; TEMP 97.3; O2SAT 98
[2017-05-08 19:33] LABS: AUTOMATED NEUTROPHIL # 6.4 TH/MM3 (1.8-7.7); BASOPHIL % 0.4 % (0.0-2.0); EOSINOPHIL # 0.1 TH/MM3 (0-0.4); EOSINOPHIL % 1.2 % (0.0-4.0); HEMATOCRIT 30.2 % (35.0-46.0); HEMO FLAGS DIFF FINAL; LYMPHOCYTE # 0.3 TH/MM3 (1.0-4.8); MEAN CELL VOLUME 85.7 FL (80.0-100.0); MEAN CORPUSCULAR HEMOGLOBIN 27.8 PG (27.0-34.0); MEAN CORPUSCULAR HGB CONC 32.4 % (32.0-36.0); NEUT % 88.4 % (16.0-70.0); PLATELET COUNT 148 TH/MM3 (150-450); RED BLOOD COUNT 3.53 MIL/MM3 (4.00-5.30); RED CELL DISTRIBUTION WIDTH 14.6 % (11.6-17.2); WHITE BLOOD COUNT 7.3 TH/MM3 (4.0-11.0)
[2017-05-08 19:34] LABS: BICARBONATE 22.1 MEQ/L (21.0-32.0)
[2017-05-08 19:37] LABS: POTASSIUM 2.9 MEQ/L (3.5-5.1)
[2017-05-08] MEDS ORDERED: LISI-515 PO (20:15)
[2017-05-08] MEDS ORDERED: CARD180C5 PO (20:15)
[2017-05-08] MEDS ORDERED: POTA-163 PO (20:18)
[2017-05-08 20:19] VITALS: BP 90/54; PULSE 81; RESP 18; TEMP 98.8; O2SAT 100
[2017-05-08] MEDS ORDERED: PLAV75TA29 PO (20:20)
[2017-05-08] MEDS ORDERED: ASPI81CH7 CHEW (20:21)
[2017-05-08] MEDS: DOCUSATE SODIUM 50 MG/SENNA 8.6 MG TAB PO SCH (21:00)
[2017-05-08] MEDS ORDERED: POTASSIUM CHLORIDE 20 MEQ CONTROLLED RELEASE TAB PO ONE (21:15)
[2017-05-08] MEDS ORDERED: ZOLPIDEM TARTRATE 10 MG TAB PO ONE ×2 (21:15→21:30)
[2017-05-08] MEDS ORDERED: guaiFENesin SOLUTION 200 MG/10 ML CUP PO ONE (21:15)
[2017-05-08] MEDS ORDERED: LINEZOLID 600 MG PREMIX 300 ML IV SCH (22:00)
[2017-05-08] MEDS: SODIUM CHLORIDE 0.9% FLUSH 10 ML FLUSH IV FLUSH SCH (22:11)
[2017-05-08] MEDS: POTASSIUM CHLOR 20 MEQ PREMIX 100 ML IV SCH ×2 (22:12→23:30)
[2017-05-09 00:22] VITALS: BP 99/54; PULSE 81; RESP 18; TEMP 98.5; O2SAT 94
[2017-05-09 06:35] VITALS: BP 106/58; PULSE 79; RESP 18; TEMP 97.7; O2SAT 98
[2017-05-09 06:50] LABS: AUTOMATED NEUTROPHIL # 5.6 TH/MM3 (1.8-7.7); BASOPHIL % 0.4 % (0.0-2.0); EOSINOPHIL # 0.1 TH/MM3 (0-0.4); HEMATOCRIT 26.6 % (35.0-46.0); HEMO FLAGS DIFF FINAL; LYMPH % 4.8 % (9.0-44.0); LYMPHOCYTE # 0.3 TH/MM3 (1.0-4.8); MEAN CORPUSCULAR HEMOGLOBIN 28.4 PG (27.0-34.0); MEAN CORPUSCULAR HGB CONC 33.8 % (32.0-36.0); MONO % 11.7 % (0.0-8.0); NEUT % 81.1 % (16.0-70.0); PLATELET COUNT 148 TH/MM3 (150-450); RED BLOOD COUNT 3.17 MIL/MM3 (4.00-5.30); RED CELL DISTRIBUTION WIDTH 14.7 % (11.6-17.2); WHITE BLOOD COUNT 6.9 TH/MM3 (4.0-11.0)
[2017-05-09 07:29] LABS: BICARBONATE 21.3 MEQ/L (21.0-32.0); MAGNESIUM 2.1 MG/DL (1.5-2.5); POTASSIUM 3.3 MEQ/L (3.5-5.1)
[2017-05-09 08:04] VITALS: BP 99/54; PULSE 77; RESP 17; TEMP 97.7; O2SAT 94
[2017-05-09] MEDS: DOCUSATE SODIUM 50 MG/SENNA 8.6 MG TAB PO SCH ×2 (09:00→20:55)
[2017-05-09] MEDS: SODIUM CHLORIDE 0.9% FLUSH 10 ML FLUSH IV FLUSH SCH ×2 (09:00→20:55)
[2017-05-09] MEDS: POTASSIUM CHLORIDE 20 MEQ CONTROLLED RELEASE TAB PO SCH (09:26)
[2017-05-09] MEDS: CLOPIDOGREL 75 MG TAB PO SCH (09:27)
[2017-05-09] MEDS: DILTIAZEM-CD 180 MG CAP ER PO SCH (09:27)
[2017-05-09] MEDS: ANASTROZOLE 1 MG TAB PO SCH (09:27)
[2017-05-09] MEDS: FUROSEMIDE 20 MG TAB PO SCH (09:29)
[2017-05-09] MEDS: azaTHIOprine 50 MG TAB PO SCH (09:29)
[2017-05-09] MEDS: ASPIRIN 81 MG CHEW TAB CHEW SCH (09:29)
[2017-05-09] MEDS: LISINOPRIL 20 MG TAB PO SCH (09:30)
[2017-05-09] MEDS: PYRIDOSTIGMINE BROMIDE 60 MG TAB PO SCH ×2 (09:30→22:04)
[2017-05-09] MEDS ORDERED: Vancomycin Consult Pharmacy 1 EA OTHER SCH (10:00)
[2017-05-09] MEDS ORDERED: VANCOMYCIN INJ 1,500 MG in SODIUM CHLORID 0.9% 500 ML INJ 500 ML IV ONE (10:00)
[2017-05-09] MEDS ORDERED: INFLUENZA VIRUS VACCINE (QUADRIVALENT) 0.5 ML SYR IM ONE (10:00)
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
[2017-05-09 12:04] VITALS: BP 99/54; PULSE 77; RESP 17; TEMP 97.7; O2SAT 94
[2017-05-09 12:44] LABS: C. DIFF EPI 027 PRESUMPTIVE NEGATIVE (NEGATIVE)
--- NOTE | 2017-05-09 12:54 | RADRPT ---
EXAM DATE/TIME: 05/09/2017 11:54 [place] COMPARISON: No previous studies available for comparison. INDICATIONS : Right arm swelling. MEDICAL HISTORY : Chronic obstructive pulmonary disease. Atrial fibrillation. Thymus cancer. Myasthenia gravis. Right breast cancer. SURGICAL HISTORY : Cholecystectomy. Valve replacement. Internal defibrillator. Cardiac catheterization. Thoracentesis . Lumpectomy, right breast. ENCOUNTER: Initial ACUITY: 1 day PAIN SCORE: 0/10 LOCATION: Right arm. FINDINGS: There is spontaneous flow documented in the brachial, basilic, cephalic, axillary, and subclavian vei ns. The vessels are compressible and augmentation response is documented. No filling defects are se en. The flow is phasic with respiration. Direction of flow in the jugular vein is caudal. CONCLUSION: Negative for venous thrombosis. John Aldana MD FACR on May 09, 2017 at 12:52 Board Certified Radiologist. This report was verified electronically.
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
[2017-05-09] MEDS: guaiFENesin/CODEINE SYRUP 200 MG/20 MG/10 ML CUP PO PRN ×2 (13:57→22:07)
[2017-05-09] MEDS: LEVOFLOXACIN 750 MG TAB PO SCH (13:57)
--- NOTE | 2017-05-09 15:03 | RADRPT ---
EXAM DATE/TIME: 05/09/2017 14:09 [place] COMPARISON: CHEST SINGLE AP, May 06, 2017, 10:23. INDICATIONS : Short of breath. Productive cough MEDICAL HISTORY : Hypertension. Cardiovascular disease. Carcinoma, breast. SURGICAL HISTORY : CABG. Pacemaker ENCOUNTER: Subsequent ACUITY: 3 days PAIN SCORE: 0/10 LOCATION: Bilateral chest FINDINGS: Frontal and lateral views of the chest demonstrate a normal-sized cardiac silhouette with calcificati on of aorta in this patient post median sternotomy. Stent overlies the heart. Cardiac pacing device i s present. There are small bilateral pleural based opacities, right larger than left. No pneumothorax or consolidation is visualized. CONCLUSION: Stable chest x-ray with small bilateral pleural effusions, right slightly larger than left. No airspa ce consolidation is visualized. Ministerio Orellana MD on May 09, 2017 at 15:00 Board Certified Radiologist. This report was verified electronically.
[2017-05-09 16:04] VITALS: BP 86/52; PULSE 75; RESP 16; TEMP 97.9; O2SAT 97
--- NOTE | 2017-05-09 16:53 | ECHRPT ---
Indication: S/P TAVR, SEPSIS, ENDOCARDITIS CONCLUSIONS Normal left ventricular size. Wall thickness is upper normal. The left ventricular systolic function is grossly normal on limited imaging. Ejection fraction is e stimated at 55-60%. There is a flattened septum in systole and diastole consistent with right ventricle pressure overload. The right ventricle is moderately dilated. Right ventricular systolic function is difficult to asse ss, possibly mildly diminished. Mild mitral valve regurgitation. Moderate mitral annular calcification. There is moderate to severe tricuspid regurgitation. The estimated systolic pulmonary pressure is 45 mm Hg. The patient is reportedly status post TAVR. The aortic valve appears to be well seated and function ing normally. Trivial aortic insufficiency. BP: / HR: Rhythm: Sinus MEASUREMENTS (Male / Female) Normal Values Technical Quality:Fair 2D ECHO LV Diastolic Diameter PLAX 4.0 cm 4.2 - 5.9 / 3.9 - 5.3 cm LV Systolic Diameter PLAX 2.5 cm IVS Diastolic Thickness 0.7 cm 0.6 - 1.0 / 0.6 - 0.9 cm LVPW Diastolic Thickness 0.7 cm 0.6 - 1.0 / 0.6 - 0.9 cm LV Relative Wall Thickness 0.4 RV Internal Dim ED PLAX 3.8 cm LVOT Diameter 1.7 cm Aortic Root Diameter 2.1 cm LA Systolic Diameter LX 3.7 cm 3.0 - 4.0 / 2.7 - 3.8 cm MV Area Planimetry 2.0 cm DOPPLER AV Peak Velocity 145.3 cm/s AV Peak Gradient 8.4 mmHg AV Mean Gradient 4.7 mmHg AV Velocity Time Integral 23.0 cm LVOT Peak Velocity 82.7 cm/s LVOT Peak Gradient 2.7 mmHg LVOT Velocity Time Integral 14.0 cm AV Area Cont Eq vti 1.4 cm AV Area Cont Eq pk 1.3 cm MV Peak Velocity 158.3 cm/s MV Peak Gradient 10.0 mmHg MV Mean Velocity 95.3 cm/s MV Mean Gradient 4.3 mmHg MV Area PHT 2.6 cm Mitral E Point Velocity 161.5 cm/s Mitral A Point Velocity 129.0 cm/s Mitral E to A Ratio 1.3 LV E' Lateral Velocity 6.8 cm/s Mitral E to LV E' Lateral Ratio 23.7 LV E' Septal Velocity 4.8 cm/s Mitral E to LV E' Septal Ratio 33.8 TR Peak Velocity 251.0 cm/s TR Peak Gradient 25.2 mmHg Right Atrial Pressure 10.0 mmHg Pulmonary Artery Systolic Pressu 35.2 mmHg Right Ventricular Systolic Press 35.2 mmHg PV Peak Velocity 64.7 cm/s PV Peak Gradient 1.7 mmHg FINDINGS LEFT VENTRICLE Normal left ventricular size. Wall thickness is upper normal. The left ventricular systolic function is grossly normal on limited imaging. Ejection fraction is e stimated at 55-60%. There is a flattened septum in systole and diastole consistent with right ventricle pressure overloa d. RIGHT VENTRICLE The right ventricle is moderately dilated. Right ventricular systolic function is difficult to asse ss, possibly mildly diminished. LEFT ATRIUM The left atrial size is normal. RIGHT ATRIUM There is a pacemaker wire present in the right atrial cavity. ATRIAL SEPTUM Normal atrial septal thickness without atrial level shunting by limited color doppler interrogation. AORTA The aortic root and proximal ascending aorta are normal in size on limited imaging. MITRAL VALVE Mild mitral valve regurgitation. Moderate mitral annular calcification. AORTIC VALVE The patient is reportedly status post TAVR. The aortic valve appears to be well seated and function ing normally. Trivial aortic insufficiency. TRICUSPID VALVE There is moderate to severe tricuspid regurgitation. The estimated systolic pulmonary pressure is 45 mm Hg. PULMONARY VALVE No pulmonary valve regurgitation or stenosis. VESSELS The inferior vena cava is normal in size. PERICARDIUM No pericardial effusion. Hipolito Pillai MD (Electronically Signed) Final Date:09 May 2017 16:53
[2017-05-09] MEDS: VANCOMYCIN INJ 1,250 MG in SODIUM CHLOR 0.9% 250 ML INJ 250 ML IV SCH (17:46)
[2017-05-09] MEDS ORDERED: SODIUM CHLOR 0.9% 1000 ML INJ 2,000 ML IV ONE (19:00)
[2017-05-09 20:05] VITALS: BP 107/55; PULSE 79; RESP 16; TEMP 97.8; O2SAT 99
[2017-05-09] MEDS: SODIUM CHLOR 0.9% 1000 ML INJ 1,000 ML IV SCH (20:55)
[2017-05-09] MEDS: ZOLPIDEM TARTRATE 10 MG TAB PO SCH (22:04)
[2017-05-09] MEDS: LOPERAMIDE HCL 2 MG CAP PO PRN (22:07)
[2017-05-09 22:13] LABS: INDIRECT BILIRUBIN 0.2 MG/DL (0.0-0.8); TOTAL BILIRUBIN ADULT 0.3 MG/DL (0.2-1.0)
[2017-05-10] VITALS: BP 95/53; PULSE 78; RESP 17; TEMP 97.7; O2SAT 97
[2017-05-10 04:00] VITALS: BP 117/59; PULSE 79; RESP 16; TEMP 97.2; O2SAT 97
[2017-05-10] MEDS: SODIUM CHLOR 0.9% 1000 ML INJ 1,000 ML IV SCH ×4 (04:58→21:27)
[2017-05-10] MEDS: guaiFENesin/CODEINE SYRUP 200 MG/20 MG/10 ML CUP PO PRN ×3 (05:39→21:26)
[2017-05-10 08:05] VITALS: BP 127/60; PULSE 85; RESP 16; TEMP 97.6; O2SAT 99
[2017-05-10] MEDS: DOCUSATE SODIUM 50 MG/SENNA 8.6 MG TAB PO SCH ×2 (09:00→21:00)
[2017-05-10] MEDS: PYRIDOSTIGMINE BROMIDE 60 MG TAB PO SCH ×3 (09:00→21:27)
[2017-05-10] MEDS: SODIUM CHLORIDE 0.9% FLUSH 10 ML FLUSH IV FLUSH SCH ×2 (09:00→21:27)
[2017-05-10] MEDS: azaTHIOprine 50 MG TAB PO SCH (09:35)
[2017-05-10] MEDS: CLOPIDOGREL 75 MG TAB PO SCH (09:35)
[2017-05-10] MEDS: ANASTROZOLE 1 MG TAB PO SCH (09:35)
[2017-05-10] MEDS: DILTIAZEM-CD 180 MG CAP ER PO SCH (09:35)
[2017-05-10] MEDS: FUROSEMIDE 20 MG TAB PO SCH (09:36)
[2017-05-10] MEDS: POTASSIUM CHLORIDE 20 MEQ CONTROLLED RELEASE TAB PO SCH (09:36)
[2017-05-10] MEDS: ASPIRIN 81 MG CHEW TAB CHEW SCH (09:36)
[2017-05-10] MEDS: LISINOPRIL 20 MG TAB PO SCH (09:36)
[2017-05-10] MEDS ORDERED: clonazePAM 1 MG TAB PO ONE (10:00)
[2017-05-10] MEDS: LEVOFLOXACIN 750 MG TAB PO SCH (11:39)
[2017-05-10] MEDS: VANCOMYCIN INJ 1,250 MG in SODIUM CHLOR 0.9% 250 ML INJ 250 ML IV SCH ×3 (11:39)
[2017-05-10 12:05] VITALS: BP 111/59; PULSE 85; RESP 16; TEMP 97.8; O2SAT 100
[2017-05-10] MEDS: clonazePAM 1 MG TAB PO SCH ×2 (14:07→21:26)
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
[2017-05-10] MEDS ORDERED: DIATRIZOATE MEGLUM/DIATRIZOATE SOD 9 ML CUP PO ONE (15:54)
[2017-05-10 16:05] VITALS: BP 108/59; PULSE 82; RESP 16; TEMP 98; O2SAT 99
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
[2017-05-10 18:44] LABS: BACTERIA, URINE OCC /hpf; BLOOD, URINE TRACE (NEG); COMMENT (UR) CULT NOT INDICATED; CULTURE IF INDICATED CULT NOT INDICATED; GLUCOSE,URINE NEG (NEG); KETONE, URINE NEG (NEG); MUCUS URINE FEW /lpf (OCC); NITRITE,URINE NEG (NEG); PH, URINE 5.5 (5.0-8.5); URINE COLOR YELLOW (YELLW/STRAW)
[2017-05-10 20:00] VITALS: BP 137/65; PULSE 90; RESP 20; TEMP 97.6; O2SAT 99
[2017-05-10] MEDS ORDERED: IOHEXOL 350 MG/ML 10 ML VIAL (for RAD DIAG) IVCONTRAST ONE (20:25)
--- NOTE | 2017-05-10 20:43 | RADRPT ---
EXAM DATE/TIME: 05/10/2017 20:21 [facility] COMPARISON: CT ABDOMEN & PELVIS W/O CONTRAST, June 13, 2014, 12:44. CHEST PA & LAT, May 09, 2017, 14:09. INDICATIONS : Drainage at peg tube site. Evaluate for abscess. IV CONTRAST: 70 cc Omnipaque 350 (iohexol) IV ORAL CONTRAST: Prescribed oral contrast ingested. RADIATION DOSE: 7.48 CTDIvol (mGy) MEDICAL HISTORY : Cardiovascular disease. Carcinoma, not otherwise specified. Carcinoma, breast. SURGICAL HISTORY : None. ENCOUNTER: Initial ACUITY: 1 day PAIN SCALE: 0/10 LOCATION: abdomen TECHNIQUE: Volumetric scanning of the abdomen and pelvis was performed. Using automated exposure control and ad justment of the mA and/or kV according to patient size, radiation dose was kept as low as reasonably achievable to obtain optimal diagnostic quality images. DICOM format image data is available electro nically for review and comparison. FINDINGS: LOWER LUNGS: Bilateral pleural effusions noted small on the left slightly larger on the right with minimal ninfa sive atelectasis adjacent to the right effusion.. LIVER: Clip in place prior cholecystectomy with gallbladder absent. Common bile duct measures up to 1.4 cm i n width acceptable post cholecystectomy. Liver reveals marked inhomogeneity without defined defect. T his is nonspecific.. SPLEEN: Normal size without lesion. PANCREAS: Within normal limits. KIDNEYS: Normal in size and shape. There is no mass, stone or hydronephrosis. ADRENAL GLANDS: Within normal limits. VASCULAR: There is no aortic aneurysm. BOWEL/MESENTERY: The stomach, small bowel, and colon demonstrate no acute abnormality. There is no free intraperitone al air or fluid. A few uncomplicated diverticuli the colon ABDOMINAL WALL: Nonspecific area of soft tissue density just to left of midline in the upper abdomen subcutaneous fat without organized fluid collection or air. This may represent a post iatrogenic intervention such PE G tube site. . RETROPERITONEUM: There is no lymphadenopathy. BLADDER: No wall thickening or mass. REPRODUCTIVE: Within normal limits. INGUINAL: There is no lymphadenopathy or hernia. MUSCULOSKELETAL: Within normal limits for patient age. CONCLUSION: Small area of soft tissue density in subcutaneous fat just to left of midline in the upper abdomen pr obably representing site of prior PEG tube. No organized fluid collection or abscess in this region. Clip in place prior cholecystectomy with common duct measuring 1.4 cm maximal diameter acceptable post cholecystectomy. Natalio nonspecific inhomogeneous density of the liver . Bilateral pleural effusions right slightly larger t orpoeza the left. Devin Sheth MD on May 10, 2017 at 20:35 Board Certified Radiologist. This report was verified electronically.
[2017-05-10] MEDS: ZOLPIDEM TARTRATE 10 MG TAB PO SCH (21:26)
[2017-05-10] MEDS: LOPERAMIDE HCL 2 MG CAP PO PRN (21:27)
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
[2017-05-11] VITALS (11 sets, daily range): BP systolic 111–139; BP diastolic 58–85; PULSE 75–95; RESP 17–28; TEMP 97.2–98.7; O2SAT 96–100
[2017-05-11] MEDS ORDERED: PHARMACY ORDERED LAB ONE (00:45)
[2017-05-11] MEDS: VANCOMYCIN INJ 1,250 MG in SODIUM CHLOR 0.9% 250 ML INJ 250 ML IV SCH ×3 (01:15→23:42)
[2017-05-11] MEDS: clonazePAM 1 MG TAB PO SCH ×3 (05:15→21:10)
[2017-05-11] MEDS: guaiFENesin/CODEINE SYRUP 200 MG/20 MG/10 ML CUP PO PRN ×3 (05:15→21:26)
[2017-05-11] MEDS: SODIUM CHLOR 0.9% 1000 ML INJ 1,000 ML IV SCH ×2 (05:18→13:09)
[2017-05-11] MEDS: DOCUSATE SODIUM 50 MG/SENNA 8.6 MG TAB PO SCH ×2 (09:00→21:00)
[2017-05-11] MEDS: FUROSEMIDE 20 MG TAB PO SCH (09:00)
[2017-05-11] MEDS: SODIUM CHLORIDE 0.9% FLUSH 10 ML FLUSH IV FLUSH SCH ×2 (09:00→21:11)
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
[2017-05-11] MEDS: DILTIAZEM-CD 180 MG CAP ER PO SCH (09:51)
[2017-05-11] MEDS: CLOPIDOGREL 75 MG TAB PO SCH (09:51)
[2017-05-11] MEDS: ASPIRIN 81 MG CHEW TAB CHEW SCH (09:51)
[2017-05-11] MEDS: azaTHIOprine 50 MG TAB PO SCH (09:51)
[2017-05-11] MEDS: LISINOPRIL 20 MG TAB PO SCH (09:51)
[2017-05-11] MEDS: ANASTROZOLE 1 MG TAB PO SCH (09:51)
[2017-05-11] MEDS: PYRIDOSTIGMINE BROMIDE 60 MG TAB PO SCH ×2 (09:51→21:00)
[2017-05-11] MEDS: POTASSIUM CHLORIDE 20 MEQ CONTROLLED RELEASE TAB PO SCH (09:53)
[2017-05-11 10:25] LABS: BICARBONATE 21.3 MEQ/L (21.0-32.0); POTASSIUM 4.1 MEQ/L (3.5-5.1)
[2017-05-11] MEDS ORDERED: RESP: ALBUTEROL 2.5 MG/IPRATROPIUM 0.5 MG NEB (PRN) NEB ×2 (10:45→11:00)
[2017-05-11] MEDS ORDERED: FUROSEMIDE 40 MG/4 ML VIAL IV PUSH ONE ×2 (11:00→17:00)
[2017-05-11] MEDS: RESP: ALBUTEROL 2.5 MG/IPRATROPIUM 0.5 MG NEB (SCH) NEB ×3 (11:24→22:00)
--- NOTE | 2017-05-11 11:48 | RADRPT ---
EXAM DATE/TIME: 05/11/2017 12:15 [facility] COMPARISON: CT ABDOMEN & PELVIS W CONTRAST, May 10, 2017, 20:21. CHEST SINGLE AP, May 06, 2017, 10:23. INDICATIONS : Shortness of breath and wheezing. MEDICAL HISTORY : Cardiovascular disease. Hypertension Carcinoma, not otherwise specified. Carcinoma, breast. SURGICAL HISTORY : CABG. Pacemaker ENCOUNTER: Subsequent ACUITY: 1 week PAIN SCORE: 0/10 LOCATION: Bilateral chest FINDINGS: Today's exam is compared to the prior study. There are increasing infiltrates in both lung bases comp ared to the prior study. The heart size is stable. There appears to be small bilateral effusions, rig ht greater than left. No change in the appearance of the heart. There is evidence of previous cardiot horacic surgery. There is no evidence of pneumothorax. The bony structures are stable. CONCLUSION: Increasing bibasilar infiltrates compared to the prior study. Kevyn Strickland MD on May 11, 2017 at 11:45 Board Certified Radiologist. This report was verified electronically.
[2017-05-11] MEDS ORDERED: methylPREDNISolone SOD SUCC 125 MG/2 ML VIAL IV PUSH ONE (12:15)
[2017-05-11] MEDS: LEVOFLOXACIN 750 MG TAB PO SCH (12:57)
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
--- NOTE | 2017-05-11 13:26 | PD.CARD.PN ---
Subjective Subjective Remarks Post-HERMILA doing well HERMILA showing small vegetation on the tricuspid valve, nothing noted on PPM or TAVR Objective Medications Current Medications Medications (Trade) Dose Ordered Sig/Corbin Route Start Time Stop Time Status Last Admin (NS Flush) 2 ml UNSCH PRN IV FLUSH 05/08/17 17:00 (NS Flush) 2 ml BID IV FLUSH 05/08/17 21:00 05/10/17 21:27 (Tylenol) 650 mg Q4H PRN PO 05/08/17 17:00 (Zofran Inj) 4 mg Q6H PRN IVP 05/08/17 17:00 (Narcan Inj) 0.4 mg UNSCH PRN IV PUSH 05/08/17 17:00 (Violeta-Colace) 1 tab BID PO 05/08/17 21:00 (Milk Of Magnesia Liq) 30 ml Q12H PRN PO 05/08/17 17:00 (Senokot) 17.2 mg Q12H PRN PO 05/08/17 17:00 (Dulcolax Supp) 10 mg DAILY PRN RECTAL 05/08/17 17:00 (Lactulose Liq) 30 ml DAILY PRN PO 05/08/17 17:00 (Arimidex) 1 mg DAILY PO 05/09/17 09:00 05/11/17 09:51 (Aspirin Chew) 81 mg DAILY CHEW 05/09/17 09:00 05/11/17 09:51 (Imuran) 100 mg DAILY PO 05/09/17 09:00 05/11/17 09:51 (Plavix) 75 mg DAILY PO 05/09/17 09:00 05/11/17 09:51 (Cardizem Cd) 180 mg DAILY PO 05/09/17 09:00 05/11/17 09:51 (Lasix) 40 mg DAILY PO 05/09/17 09:00 05/10/17 09:36 (Prinivil) 20 mg DAILY PO 05/09/17 09:00 05/11/17 09:51 (KCl) 40 meq DAILY PO 05/09/17 09:00 05/11/17 09:53 (Mestinon) 60 mg BID PO 05/09/17 09:00 05/11/17 09:51 (Ambien) 10 mg HS PO 05/09/17 21:00 05/10/17 21:26 Pharmacy Profile Note 0 ml @ 0 mls/hr UNSCH OTHER 05/09/17 10:00 (Robitussin Ac 200-20 Mg/10 ml Liq) 10 ml Q6H PRN PO 05/09/17 10:15 05/11/17 09:51 Vancomycin HCl 1250 mg/Sodium Chloride 262.5 ml @ 250 mls/hr Q12H IV 05/09/17 13:00 05/11/17 12:58 (Levaquin) 750 mg Q24H PO 05/09/17 12:00 05/11/17 12:57 (Imodium) 2 mg Q6H PRN PO 05/09/17 13:45 05/10/17 21:27 Sodium Chloride 1,000 ml @ 150 mls/hr Q6H40M IV 05/09/17 21:00 05/11/17 13:09 (KlonoPIN) 1 mg Q8HR PO 05/10/17 14:00 05/11/17 12:58 (Duoneb Neb) 1 ampule Q4HR WHILE AWAKE NEB NEB 05/11/17 12:00 05/11/17 11:24 (Duoneb Neb) 1 ampule Q4HR NEB PRN NEB 05/11/17 11:00 Miscellaneous Information SPECIFIC LAB TO BE DEE... ONCE ONCE .XX 05/13/17 12:45 05/13/17 12:46 (Lasix Inj) 40 mg BID@09,18 IV PUSH 05/11/17 18:00 (SoluMEDROL INJ) 40 mg Q6HR IV PUSH 05/11/17 18:00 05/14/17 17:59 Vital Signs / I&O Vital Signs Date Time Temp Pulse Resp B/P (MAP) Pulse Ox O2 Delivery O2 Flow Rate FiO2 05/11/17 12:06 97.2 84 18 125/85 (98) 96 05/11/17 11:39 98 21 05/11/17 11:21 97.6 81 17 134/64 (87) 100 05/11/17 10:00 2.00 05/11/17 08:06 97.6 80 19 139/67 (91) 100 05/11/17 04:00 97.6 78 20 100 05/11/17 00:00 97.6 76 20 111/58 (75) 98 05/10/17 20:00 97.6 90 20 137/65 (89) 99 05/10/17 19:30 98 Room Air 05/10/17 16:05 98.0 82 16 108/59 (75) 99 I/O 05/10/17 05/10/17 05/10/17 05/11/17 05/11/17 05/11/17 07:00 15:00 23:00 07:00 15:00 23:00 Intake Total 1982.5 ml 420 ml 1602.5 ml Balance 1982.5 ml 420 ml 1602.5 ml Intake Oral 720 ml 420 ml 340 ml IV Total 1262.5 ml 1262.5 ml # Voids 2 5 2 # Bowel Movements 2 Physical Exam GENERAL: NAD, AAOx3 SKIN: Warm and dry. HEAD: Atraumatic. Normocephalic. EYES: Pupils equal and round. No scleral icterus. No injection or drainage. ENT: No nasal bleeding or discharge. Mucous membranes pink and moist. NECK: Trachea midline. No JVD. CARDIOVASCULAR: Regular rate and rhythm. RESPIRATORY: No accessory muscle use. Decreased breath sounds bilaterally, mild rhonchi/wheezing GASTROINTESTINAL: Abdomen soft, non-tender, nondistended. Hepatic and splenic margins not palpable. MUSCULOSKELETAL: Extremities without clubbing, cyanosis, or edema. No obvious deformities. NEUROLOGICAL: Awake and alert. No obvious cranial nerve deficits. Motor grossly within normal limits. Five out of 5 muscle strength in the arms and legs. Normal speech. PSYCHIATRIC: Appropriate mood and affect; insight and judgment normal. Laboratory Laboratory Tests Test 05/10/17 17:48 05/11/17 01:00 05/11/17 08:07 Urine Color YELLOW Urine Turbidity CLEAR Urine pH 5.5 Urine Specific [place] 1.013 Urine Protein NEG mg/dL Urine Glucose (UA) NEG mg/dL Urine Ketones NEG mg/dL Urine Occult Blood TRACE Urine Nitrite NEG Urine Bilirubin NEG Urine Urobilinogen LESS THAN 2.0 MG/DL Urine Leukocyte Esterase NEG Urine RBC 1 /hpf Urine WBC 4 /hpf Urine Bacteria OCC /hpf Urine Mucus FEW /lpf Microscopic Urinalysis Comment CULT NOT INDICATED Vancomycin Level Trough 18.2 MCG/ML Blood Urea Nitrogen 6 MG/DL Creatinine 0.79 MG/DL Random Glucose 94 MG/DL Calcium Level 8.4 MG/DL Sodium Level 142 MEQ/L Potassium Level 4.1 MEQ/L Chloride Level 114 MEQ/L Carbon Dioxide Level 21.3 MEQ/L Anion Gap 7 MEQ/L Estimat Glomerular Filtration Rate 73 ML/MIN Imaging Last 24 hours Impressions Chest X-Ray 05/11/17 0000 Signed Impressions: Service Date/Time: Thursday, May 11, 2017 12:15 - CONCLUSION: Increasing bibasilar infiltrates compared to the prior study. Kevyn Strickland MD Assessment and Plan Problem List: (1) Endocarditis ICD Codes: I38 - Endocarditis, valve unspecified (2) Bacteremia due to Enterococcus ICD Codes: R78.81 - Bacteremia (3) Status post transcatheter aortic valve replacement (TAVR) using bioprosthesis ICD Codes: Z95.3 - Presence of xenogenic heart valve (4) E. coli UTI ICD Codes: N39.0 - Urinary tract infection, site not specified; B96.20 - Unspecified Escherichia coli [E. coli] as the cause of diseases classified elsewhere Assessment and Plan 1) HERMILA showing vegetation on tricuspid valve No associated with PPM or TAVR Anti-biotics per ID 2) No further cardiovascular work up at this time 3) Can follow up with Dr. Terry upon discharge 4) Will see PRN, call with questions Jacek Cherry DO May 11, 2017 13:26
[2017-05-11 15:17] LABS: BLOOD GAS BASE EXCESS -4.9 mmol/L (-2-2); BLOOD GAS CARBOXYHEMOGLOBIN 1.1 % (0-4); BLOOD GAS HCO3 20 mmol/L (22-26); BLOOD GAS METHEMOGLOBIN 0.9 % (0-2); BLOOD GAS O2 HGB SATURATION 95 % (90-100); BLOOD GAS OXYGEN CONTENT 11.7 Vol % (12.0-20.0); BLOOD GAS PCO2 35 mmHg (38-42); BLOOD GAS PO2 92 mmHg (61-120); BLOOD GAS TOTAL HGB 8.6 G/DL (12.0-16.0); TEMP CORR TO 98.6
[2017-05-11 15:18] LABS: CRITICAL VALUE NO; DRAW SITE LT RADIAL; LITER FLOW 2 L/M; NUMBER OF ARTERIAL PUNCTURES 1; OXYGEN DEVICE NASAL CANNULA; STAT NO; ULNAR PULSE PRESENT
[2017-05-11] MEDS: FUROSEMIDE 40 MG/4 ML VIAL IV PUSH SCH ×2 (16:57→17:58)
[2017-05-11] MEDS: methylPREDNISolone SOD SUCC 40 MG/1 ML VIAL IV PUSH SCH ×2 (17:12→23:41)
[2017-05-11] MEDS: ENOXAPARIN SODIUM 40 MG/0.4 ML SYRINGE SQ SCH (17:53)
[2017-05-11] MEDS ORDERED: IOHEXOL 350 MG/ML 10 ML VIAL (for RAD DIAG) IVCONTRAST ONE (18:18)
--- NOTE | 2017-05-11 18:30 | RADRPT ---
EXAM DATE/TIME: 05/11/2017 18:09 [facility] COMPARISON: CHEST SINGLE AP, May 11, 2017, 12:15. INDICATIONS : Short of breath. IV CONTRAST: 80 cc Omnipaque 350 (iohexol) IV RADIATION DOSE: 12.64 CTDIvol (mGy) MEDICAL HISTORY : Cardiovascular disease. Breast & Thymus cancer SURGICAL HISTORY : Pacemaker. Defibrillator.Cholecystectomy. ENCOUNTER: Initial ACUITY: 1 day PAIN SCALE: 6/10 LOCATION: Bilateral chest TECHNIQUE: Volumetric scanning of the chest was performed using a pulmonary embolism protocol MIP images were re constructed. Using automated exposure control and adjustment of the mA and/or kV according to patien t size, radiation dose was kept as low as reasonably achievable to obtain optimal diagnostic quality images. DICOM format image data is available electronically for review and comparison. Follow-up recommendations for detected pulmonary nodules are based at a minimum on nodule size and pa tient risk factors according to Fleischner Society Guidelines. FINDINGS: There is noted to be pacemaker overlying the left hemithorax evidence of prior median sternotomy and a stent in place potentially across the aortic valve into the proximal ascending aorta. There is left ventricular cardiomegaly. Vascularity appears distinct. Bilateral pleural effusions are appreciated which is moderate size on the right and small on the left with pulmonary parenchyma being clear with no consolidative acute process nodule or mass. Pulmonary arteries seen to third and fourth order bran edgar no evidence of embolism. CONCLUSION: Negative for pulmonary embolism. Bilateral pleural effusions moderate on the right sm all on the left with clear lung gonzalez no parenchymal infiltrate or evidence of CHF Devin Sheth MD on May 11, 2017 at 18:24 Board Certified Radiologist. This report was verified electronically.
[2017-05-11] MEDS: ZOLPIDEM TARTRATE 10 MG TAB PO SCH (21:10)
[2017-05-11 22:06] LABS: INTERNATIONAL NORMALIZED RATIO 1.1 RATIO; PROTHROMBIN TIME - PATIENT 12.1 SEC (9.8-11.6)
[2017-05-12] VITALS (14 sets, daily range): BP systolic 106–145; BP diastolic 61–86; PULSE 85–110; RESP 24–36; TEMP 97.6–98.8; O2SAT 97–99
[2017-05-12] MEDS: methylPREDNISolone SOD SUCC 40 MG/1 ML VIAL IV PUSH SCH ×3 (05:44→18:42)
[2017-05-12] MEDS: clonazePAM 1 MG TAB PO SCH (05:44)
[2017-05-12] MEDS: RESP: ALBUTEROL 2.5 MG/IPRATROPIUM 0.5 MG NEB (SCH) NEB ×4 (08:10→22:06)
[2017-05-12] MEDS: ASPIRIN 81 MG CHEW TAB CHEW SCH (08:18)
[2017-05-12] MEDS: DILTIAZEM-CD 180 MG CAP ER PO SCH (08:19)
[2017-05-12] MEDS: CLOPIDOGREL 75 MG TAB PO SCH (08:19)
[2017-05-12] MEDS: azaTHIOprine 50 MG TAB PO SCH (08:19)
[2017-05-12] MEDS: PYRIDOSTIGMINE BROMIDE 60 MG TAB PO SCH ×2 (08:20→21:42)
[2017-05-12] MEDS: LISINOPRIL 20 MG TAB PO SCH (08:20)
[2017-05-12] MEDS: POTASSIUM CHLORIDE 20 MEQ CONTROLLED RELEASE TAB PO SCH (08:20)
[2017-05-12] MEDS: FUROSEMIDE 40 MG/4 ML VIAL IV PUSH SCH ×2 (08:21→18:42)
[2017-05-12] MEDS: SODIUM CHLORIDE 0.9% FLUSH 10 ML FLUSH IV FLUSH SCH ×2 (08:21→21:46)
[2017-05-12] MEDS: DOCUSATE SODIUM 50 MG/SENNA 8.6 MG TAB PO SCH ×2 (08:21→21:42)
[2017-05-12] MEDS: clonazePAM 1 MG TAB PO PRN ×2 (08:38→16:38)
[2017-05-12] MEDS: ANASTROZOLE 1 MG TAB PO SCH (08:38)
[2017-05-12] MEDS: LOPERAMIDE HCL 2 MG CAP PO PRN (10:38)
[2017-05-12] MEDS: LEVOFLOXACIN 750 MG TAB PO SCH (10:39)
[2017-05-12] MEDS: VANCOMYCIN INJ 1,250 MG in SODIUM CHLOR 0.9% 250 ML INJ 250 ML IV SCH (12:07)
--- NOTE | 2017-05-12 12:24 | ECHRPT ---
Indication: endocarditis CONCLUSIONS The left ventricular systolic function is low normal with an estimated ejection fraction in the rang e of 50- 55%. Mild mitral valve regurgitation. No vegetation noted on TAVR valve. There is moderate tricuspid regurgitation. Small vegetation noted on the anterior leaflet with extra-cardiac motion, consistent with endocardit is. BP: / HR: Rhythm: Technical Quality:Fair Medications Complications None Proc. Components Anesthesia at the bedside for sedation FINDINGS LEFT VENTRICLE Normal left ventricular size. Wall thickness is normal. The left ventricular systolic function is low normal with an estimated ejection fraction in the rang e of 50- 55%. RIGHT VENTRICLE The right ventriclar size is upper limits of normal. A pacemaker wire is noted. LEFT ATRIUM Probably normal size RIGHT ATRIUM Probably normal size ATRIAL APPENDAGES Normal left atrial appendage size with no evidence of thrombus formation. ATRIAL SEPTUM Normal atrial septal thickness without atrial level shunting by limited color doppler interrogation. No atrial level shunt is observed with agitated saline contrast administration. AORTA Descending aorta appears normal size without dissection MITRAL VALVE Structurally normal mitral valve. No mitral valve stenosis. Mild mitral valve regurgitation. AORTIC VALVE TAVR Corevalve well seated. No regurgitation noted. No vegetation noted on TAVR valve. TRICUSPID VALVE Structurally normal tricuspid valve. No tricuspid valve stenosis. There is moderate tricuspid regurgitation. Small vegetation noted on the anterior leaflet with extra-cardiac motion, consistent with endocardit is. VESSELS The pulmonary valve is not well visualized. No pulmonary valve regurgitation. Jacek Cherry DO (Electronically Signed) Final Date:12 May 2017 12:18
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
--- NOTE | 2017-05-12 14:42 | RADRPT ---
EXAM DATE/TIME: 05/12/2017 14:49 [facility] COMPARISON: CHEST SINGLE AP, May 11, 2017, 12:15. INDICATIONS : Status post right sided thoracentesis. MEDICAL HISTORY : Cardiovascular disease. Hypertension Carcinoma, not otherwise specified. Carcinoma, breast. SURGICAL HISTORY : CABG. Pacemaker. ENCOUNTER: Subsequent ACUITY: 1 day PAIN SCORE: 0/10 LOCATION: chest FINDINGS: A single portable frontal view of the chest shows a reduction in size of the right pleural effusion. Tiny bilateral pleural effusions remain. No pneumothorax. Cardiomegaly with pulmonary vascular engorg ement. Left-sided pacing device. Median sternotomy wires. CONCLUSION: No pneumothorax following right-sided thoracentesis. Bran Mendez Jr., MD on May 12, 2017 at 14:27 Board Certified Radiologist. This report was verified electronically.
--- NOTE | 2017-05-12 14:45 | RADRPT ---
EXAM DATE/TIME: 05/12/2017 13:24 [facility] COMPARISON: No previous studies available for comparison. INDICATIONS : Pleural effusion. MEDICAL HISTORY : Chronic obstructive pulmonary disease. Atrial fibrillation. Thymus cancer. Myasthenia gravis. Right breast cancer. SURGICAL HISTORY : Cholecystectomy Valve replacement. Internal defibrillator. Cardiac catheterization. Thoracentesis. Lumpectomy, right breast. ENCOUNTER: Subsequent ACUITY: 4 - 6 days PAIN SCORE: 5/10 LOCATION: Right chest FLUID: Total volume of 600 cc of clear, yellow fluid was removed. Fluid was sent to lab for ordered studies. TECHNIQUE: 1. Ultrasound guidance for thoracentesis. 2. Thoracentesis. The risks, benefits, and alternatives to ultrasound guided thoracentesis were explained to the patien t in lay simple terms, including the risk of bleeding and infection. Written and verbal informed con sent was obtained. Appropriate area for thoracentesis was marked under ultrasound guidance with the patient in the uprig ht position. Overlying skin was prepped and draped in the usual sterile fashion and with local anest hetic, a dermatotomy was made with an 11 blade scalpel. A 6 [place] thoracentesis catheter was placed in the pleural space and fluid was removed. Catheter was then removed and a sterile dressing applie d. There were no immediate complications. The patient tolerated the procedure well and the left the ultrasound suite in stable condition. Chest radiograph is to be obtained. CONCLUSION: Uncomplicated ultrasound guided right thoracentesis. Bran Mendez Jr., MD on May 12, 2017 at 14:44 Board Certified Radiologist. This report was verified electronically.
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
[2017-05-12] MEDS ORDERED: GENTAMICIN INJ 240 MG in SODIUM CHLORIDE 0.9% INJ 100 ML IV ONE (15:00)
[2017-05-12 16:16] LABS: TOTAL PROTEIN,PLEURAL FLUID 2.9 GM/DL
[2017-05-12] MEDS: ENOXAPARIN SODIUM 40 MG/0.4 ML SYRINGE SQ SCH (16:28)
[2017-05-12] MEDS: PENICILLIN G POTASSIUM INJ 3,000,000 UNITS in SODIUM CHLORIDE 0.9% INJ 100 ML IV SCH ×2 (16:28→20:36)
[2017-05-12 16:49] LABS: PLEURAL FLUID LYMPHS 70 %
[2017-05-12] MEDS: guaiFENesin/CODEINE SYRUP 200 MG/20 MG/10 ML CUP PO PRN (21:42)
[2017-05-12] MEDS: ZOLPIDEM TARTRATE 10 MG TAB PO SCH (21:42)
[2017-05-13] VITALS: BP_SYST 109; BP_SYST 131; BP_DIAS 55; PULSE 91; RESP 22; TEMP 98.6; O2SAT 93
[2017-05-13] MEDS: methylPREDNISolone SOD SUCC 40 MG/1 ML VIAL IV PUSH SCH (00:14)
[2017-05-13] MEDS: PENICILLIN G POTASSIUM INJ 3,000,000 UNITS in SODIUM CHLORIDE 0.9% INJ 100 ML IV SCH (00:14)
[2017-05-13] MEDS ORDERED: PHARMACY ORDERED LAB ONE (12:45)
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
--- NOTE | 2017-05-21 10:01 | PQ ---
Physician Query Response Document PATIENT: TONY COBB : 1950 ADMIT DATE: 05/08/2017 4:40 PM DISCH DATE: 05/13/2017 12:40 AM RESPONDING PROVIDER #: [email or web address] QUERY TEXT: Clarification of Clinical Diagnostic Findings Please clarify documentation or clinical relevance for the clinical / diagnostic findings or whether those are insignificant or unable to be further specified. DID THIS PATIENT HAVE : 1)Bacteremia without Sepsis 2)Bacteremia with Sepsis 3)other(please specify) The patient's Clinical Indicators include: Dr. GRIJALVA, PLEASE CLARIFY Infectious disease documents "Enterococcal Sepsis" Attending documents "Bacteremia". Please review question below and answer to the best of your ability THANK YOU Query created by: Mookie Abreu on 05/15/2017 10:25 AM RESPONSE TEXT: Bacteremia with sepsis (Tachycardic, tachypnea, known positive blood culture with Enterococcus). Electronically signed by: Kg Grijalva DO 05/21/2017 9:56 AM
== END 2017-05-13 00:40 | disposition left against medical advice (07) | DRG 871 ==
LOC: N04A 16:40 → HIMN 05-11 19:25
PROVIDERS: ADMIT Hospitalist; ATTEND Hospitalist
PROC: B246ZZ4 Ultrasonography of Right and Left Heart, Transesophageal (ICD-10-PCS; principal; 2017-05-11)
PROC: 0W993ZX Drainage of Right Pleural Cavity, Percutaneous Approach, Diagnostic (ICD-10-PCS; 2017-05-12)
DX: A41.81 Sepsis due to Enterococcus (principal); J96.01 Acute respiratory failure with hypoxia; I33.0 Acute and subacute infective endocarditis; J18.9 Pneumonia, unspecified organism; G70.00 Myasthenia gravis without (acute) exacerbation; I48.91 Unspecified atrial fibrillation; J44.0 Chronic obstructive pulmonary disease with (acute) lower respiratory infection; N39.0 Urinary tract infection, site not specified; I10 Essential (primary) hypertension; B96.20 Unspecified Escherichia coli [E. coli] as the cause of diseases classified elsewhere; Z88.0 Allergy status to penicillin; E87.6 Hypokalemia; R19.7 Diarrhea, unspecified; I25.10 Atherosclerotic heart disease of native coronary artery without angina pectoris; Z95.0 Presence of cardiac pacemaker; I08.1 Rheumatic disorders of both mitral and tricuspid valves; J70.5 Respiratory conditions due to smoke inhalation; N61.0 Mastitis without abscess; F41.9 Anxiety disorder, unspecified; F32.9 Major depressive disorder, single episode, unspecified; Z95.3 Presence of xenogenic heart valve; Z92.3 Personal history of irradiation; Z85.3 Personal history of malignant neoplasm of breast; Z95.1 Presence of aortocoronary bypass graft; Z85.238 Personal history of other malignant neoplasm of thymus; Z80.1 Family history of malignant neoplasm of trachea, bronchus and lung; Z83.3 Family history of diabetes mellitus; Z82.49 Family history of ischemic heart disease and other diseases of the circulatory system; B95.2 Enterococcus as the cause of diseases classified elsewhere; Z23 Encounter for immunization
CPT/HCPCS: 32555; 36600; 71010; 71020; 71275; 74177; 76937; 80048; 80076; 80202; 81001; 82805; 82945; 83615; 83735; 83986; 84157; 85025; 85049; 85610; 85652; 87015; 87040; 87070; 87077; 87102; 87116; 87186; 87205; 87206; 87449; 87493; 87641; 88112; 88305; 89051; 90686; 93306; 93312; 93320; 93325; 93971; 94002; 94150; 94640; 94664; J1580; J1650; J1940; J2020; J2540; J2920; J2930; J3370; J3480; J7030; J7050; J7500; Q2038; Q9963; Q9967